=== PATIENT | female | born 1945 | race Caucasian/White ===

== ENCOUNTER 2021-12-11 17:16 | Inpatient (IN) | payer MEDICARE, MEDICAID, SELFPAY ==
[2021-12-11] VITALS (13 sets, daily range): BP systolic 107–142; BP diastolic 58–86; PULSE 79–113; RESP 11–20; TEMP 36.6–36.7; O2SAT 96–100; BMI 36.9
--- NOTE | ~2021-12-11 | XR_ITS ---
EXAMINATION: XR chest 2V 12/11/2021 18:18 INDICATION: Chest pain PROCEDURE: 2 view chest COMPARISON: No prior studies for comparison. FINDINGS: The lungs are clear. The cardiomediastinal silhouette is within normal limits. There are no pleural effusions. There is no pneumothorax suspected. IMPRESSION: 1: NO ACUTE CARDIOPULMONARY DISEASE. Reviewed, dictated and finalized at location A.
--- NOTE | ~2021-12-11 | NM_ITS ---
EXAMINATION: NM pulmonary perfusion DATE: 12/14/2021 14:25 INDICATION: Chest pain TECHNIQUE: 5.2 mCi Tc-99m MAA by intravenous route. Scintigraphic images of the chest were obtained. COMPARISON: Chest radiograph dated 12/11/2021 FINDINGS: Moderate sized unmatched relatively linear perfusion defect at the posterior segment of the left uppe r lobe seen only on the LPO projection. Additional small unmatched perfusion defect at the lateral ba silar segment of the right lower lobe. There is otherwise relatively homogeneous perfusion throughout the lungs. IMPRESSION: 1. Nondiagnostic (low or intermediate probability) for pulmonary embolism. Reviewed, dictated and finalized at location A.
--- NOTE | ~2021-12-11 | XR_ITS ---
EXAMINATION: XR chest 2V 12/14/2021 14:16 INDICATION: Dyspnea. Chest pain. PROCEDURE: 2 view chest COMPARISON: 12/11/2021 FINDINGS: The lungs are clear. The cardiomediastinal silhouette is within normal limits. There are no pleural effusions. There is no pneumothorax suspected. There is elevation of the right diaphragm . IMPRESSION: 1: NO ACUTE CARDIOPULMONARY DISEASE. Reviewed, dictated and finalized at location A.
--- NOTE | 2021-12-11 17:27 | ECG_ITS ---
Measurements Intervals [place] Rate: 103 P: 25 TN: 185 QRS: -47 QRSD: 108 T: 65 QT: 337 QTc: 443 Interpretive Statements SINUS TACHYCARDIA WITH OCCASIONAL VENTRICULAR PREMATURE COMPLEXES MARKED LEFT AXIS DEVIATION [QRS AXIS < -30] LOW QRS VOLTAGE IN PRECORDIAL LEADS [QRS DEFLECTION < 1.0 mV IN CHEST LEADS] MODERATE VOLTAGE CRITERIA FOR LVH, CONSIDER NORMAL VARIANT [MEETS CRITERIA IN ONE OF: R(aVL), S(V1), R(V5), R(V5/V6)+S(V1)] POSSIBLE ANTERIOR MYOCARDIAL INFARCTION , PROBABLY OLD [30 ms Q WAVE IN V3/V4, OR R < 0.2 mV IN V4] ABNORMAL ECG NO PREVIOUS ECG AVAILABLE FOR COMPARISON Electronically Signed On 12-12-2021 11:14:04 CDT by Mushtaq Puente M.D.
[2021-12-11 18:03] LABS: Basophils Absolute Auto 0.1 K/mm3 (0.0-0.1); Basophils Percent Auto 1.5 % (0.2-1.2); Eosinophils Absolute Auto 0.2 K/mm3 (0-0.3); Hematocrit 41.1 % (37.0-47.0); Hemoglobin 13.8 g/dL (12.0-15.0); Immature Granulocyte Absolute 0.08 K/mm3 (0.00-0.031); Lymphocytes Absolute Auto 2.72 K/mm3 (0.9-3.2); Mean Corpuscular HGB Conc 33.6 g/dl (32-36); Mean Corpuscular Hemoglobin 31.9 pg (26-34); Mean Corpuscular Volume 94.9 fl (80-100); Mean Platelet Volume 10.2 fl (7.4-10.4); Monocytes Absolute Auto 0.5 K/mm3 (0.1-0.6); Monocytes Percent Auto 5.9 % (2.6-8.5); Neutrophils Absolute Auto 4.4 K/mm3 (1.3-6.7); Neutrophils Percent Auto 54.6 % (45.5-73.1); Platelet Count Result 232 k/mm3 (150-375); Red Blood Count 4.33 M/mm3 (4.2-5.4); Red Cell Distribution Width 14.4 % (11.5-14.5)
[2021-12-11] MEDS: ASPIRIN 81 MG CHEWABLE TABLET 324 MG PO (18:05)
--- NOTE | 2021-12-11 18:05 | PC.NURSE ---
Pt to xray
[2021-12-11 18:13] LABS: Prothrombin Time 12.8 Seconds (11.1-14.7)
[2021-12-11 18:14] LABS: Partial Thromboplastin Time 30.8 SECONDS (22.3-36.8)
[2021-12-11 18:16] LABS: Alanine Aminotransferase 17 U/L (4-35); Albumin Level 4.4 g/dL (3.5-5.1); Alkaline Phosphatase 97 U/L (38-126); Anion Gap 13 mmol/L (8-16); Aspartate Amino Transferase 42 U/L (14-36); Bilirubin,Total 0.9 mg/dL (0.2-1.3); Blood Urea Nitrogen 16 mg/dL (7-17); Calcium 9.6 mg/dL (8.4-10.2); Carbon Dioxide 21 mmol/L (22-30); Chloride 106 mmol/L (98-107); Estimated CRCL calculation 41 ml/min; Estimated Glomerular Filt Rate 43; Glucose 220 mg/dL (65-110); Lipase 63 U/L (23-300); Potassium 4.2 mmol/L (3.4-5.0); Sodium 140 mmol/L (137-145)
[2021-12-11 18:28] LABS: Troponin I < 0.012 ng/mL (0.000-0.034)
--- NOTE | 2021-12-11 19:26 | ED.CHESTPAIN ---
HPI - Chest Pain General Chief Complaint: Chest Pain Stated Complaint: dyspnea Time Seen by Provider: 12/11/21 19:06 Source: patient Limitations: no limitations History of Present Illness HPI narrative: Patient is a 76-year-old female complaining of chest pain, midsternal, 5 out of 10, pressure, accompanied by intermittent shortness of breath, nonradiating started this morning. Patient denies any abdominal pain, nausea, vomiting, diaphoresis, fever or chills. Related Data Home Medications Medication Instructions Recorded Confirmed atorvastatin 10 mg PO DAILY 12/11/21 12/11/21 carvedilol 3.125 mg PO BID 12/11/21 12/11/21 losartan 25 mg PO DAILY 12/11/21 12/11/21 metformin 1,000 mg PO DAILY 12/11/21 12/11/21 nifedipine 90 mg PO DAILY 12/11/21 12/11/21 trazodone 50 mg PO HS 12/11/21 12/11/21 Allergies Allergy/AdvReac Type Severity Reaction Status Date / Time Iodinated Contrast Media Allergy Unknown Verified 12/11/21 17:53 Penicillins Allergy Unknown Verified 12/11/21 17:52 Review of Systems Review of Systems: All systems reviewed & are unremarkable except as noted in HPI and below Constitutional: Constitutional: Denies body ache(s), Denies chills, Denies excessive sweating, Denies fatigue, Denies fever(s), Denies headache(s), Denies lethargy, Denies malaise, Denies weakness and Denies weight loss Eyes: Eyes: Denies blurry vision, Denies change in vision and Denies loss of vision ENT: Denies dizziness, Denies ear discharge, Denies headache(s), Denies lip swelling, Denies epistaxis, Denies nasal congestion, Denies neck pain, Denies throat swelling and Denies tongue swelling Cardiovascular: Cardiovascular: Denies diaphoresis, Denies rapid heart rate, Denies edema, Denies irregular heart rhythm, Denies lightheadedness, Denies palpitations, Denies dyspnea and Denies dyspnea on exertion Respiratory: Respiratory: Denies chest congestion, Denies cough, Denies hemoptysis, Denies dyspnea and Denies dyspnea on exertion Gastrointestinal: Gastrointestinal: Denies abdominal pain, Denies melena, Denies hematochezia, Denies diarrhea, Denies nausea, Denies vomiting and Denies hematemesis Musculoskeletal: Musculoskeletal: Denies abnormal gait, Denies deformity, Denies joint swelling, Denies limited range of motion, Denies neck pain and Denies numbness Neurologic: Denies Abnormal speech present, Denies abnormal gait, Denies confusion, Denies dizziness, Denies headache(s), Denies focal weakness, Denies loss of vision, Denies numbness, Denies Other visual disturbances, Denies Sensory deficit (Neuro) and Denies weakness Psychiatric: Psychiatric: Denies confusion, Denies depression, Denies auditory hallucinations, Denies homicidal ideation and Denies suicidal ideation Endocrine: Endocrine: Denies cold intolerance, Denies excessive sweating, Denies fatigue, Denies heat intolerance and Denies palpitations Hematologic/Lymphatic: Hematologic/Lymphatic: Denies easy bleeding and Denies easy bruising Allergic/Immunologic: Allergic/Immunologic: Denies lip swelling, Denies throat swelling and Denies tongue swelling PMFSH Comments Past medical history: Diabetes, hypertension, hyperlipidemia Family history: Positive for hypertension and diabetes Social history: Non-smoker no EtOH or drug use Exam Const: General: cooperative, healthy appearing, comfortable, no acute distress, well developed, alert and awake; No confusion Orientation/consciousness: oriented to person, oriented to place, oriented to time, patient oriented x3 and No confusion Limitations: no limitations HENMT: Head: normal to inspection, normocephalic and atraumatic Ears: hearing grossly normal bilaterally, TM normal on the right and TM normal on the left General nose exam: Normal external nose present, Normal nares present and No nasal discharge present Face and sinus: normal facial exam Mouth: Yes Normal oral and palatal mucosa present, Yes lip normal, Yes tongue normal and Yes orophary
[2021-12-11 21:07] LABS: Glucose Point of Care 143 mg/dl (65-105)
--- NOTE | 2021-12-11 21:30 | PM.IMHP ---
H&P: HPI History of Present Illness Date/Time: 12/11/21 21:30 Chief Complaint: Chest pain. Narrative: This is a 76-year-old female with past medical history significant for hypertension, dyslipidemia, type 2 diabetes mellitus controlled with oral agents. Patient presents to the emergency room due to chest pain, pain is localized to the retrosternal area, pain has remained steady throughout the day with some intermittent shortness of breath, no nausea, no vomiting, no dizziness, no syncope, no near syncope, no cough no sputum production, no fevers no rigors no chills, no leg swelling. Preliminary workup was significant for a creatinine of 1.2. Patient is been admitted for further evaluation, management and treatment. Review of Systems Review of Systems: Retrosternal chest pain. Constitutional: Constitutional: Denies chills, Denies fatigue, Denies fever(s), Denies malaise, Denies night sweats, Denies poor appetite and Denies weakness Eyes: Eyes: Denies change in vision ENT: Denies dysphagia, Denies vertigo, Denies dizziness, Denies nasal congestion, Denies nasal discharge, Denies nasal obstruction and Denies odynophagia Cardiovascular: Cardiovascular: Reports chest pain, Denies chest pain with activity, Denies palpitations, Denies dyspnea on exertion, Denies orthopnea and Denies paroxysmal nocturnal dyspnea Respiratory: Respiratory: Denies cough, Denies excessive phlegm production, Denies dyspnea and Denies wheezing Gastrointestinal: Gastrointestinal: Denies abdominal pain, Denies dyspepsia, Denies heartburn, Denies diarrhea, Denies nausea and Denies vomiting Genitourinary: Genitourinary: Denies dysuria Musculoskeletal: Musculoskeletal: Denies back pain, Denies arthralgias, Denies joint swelling and Denies neck pain Integumentary/Breasts: Skin/Breast: Denies rash Neurologic: Denies focal weakness and Denies Sensory deficit (Neuro) Psychiatric: Psychiatric: Reports no additional psychiatric complaints and Reports as per HPI Endocrine: Endocrine: Denies cold intolerance, Denies heat intolerance, Denies polyphagia, Denies polydipsia, Denies polyuria and Denies palpitations Hematologic/Lymphatic: Hematologic/Lymphatic: Reports no additional hematologic/lymphatic complaints and Reports as per HPI Allergic/Immunologic: Allergic/Immunologic: Reports no additional allergic/immunologic complaints and Reports as per HPI [facility] Family History Family History (Updated 12/11/21 @ 23:35 by Corrine Kennedy RN) Mother Heart disease Social History Social History Smoking status: Never smoker Alcohol intake: never Substance use: never Substance use type: does not use Spiritual care concerns: No Meds Home Medications and Allergies Home Medications Medication Instructions Recorded Confirmed Type atorvastatin 10 mg PO DAILY 12/11/21 12/11/21 History carvedilol 3.125 mg PO BID 12/11/21 12/11/21 History losartan 25 mg PO DAILY 12/11/21 12/11/21 History metformin 1,000 mg PO DAILY 12/11/21 12/11/21 History nifedipine 90 mg PO DAILY 12/11/21 12/11/21 History trazodone 50 mg PO HS 12/11/21 12/11/21 History Allergies Allergy/AdvReac Type Severity Reaction Status Date / Time Iodinated Contrast Media Allergy Unknown Verified 12/11/21 17:53 Penicillins Allergy Unknown Verified 12/11/21 17:52 Vital Signs Vital Signs - 24 hr 12/11/21 17:18 12/11/21 17:50 12/11/21 17:51 Temperature 98.1 F Pulse Rate 113 H 97 Respiratory Rate 18 Blood Pressure 107/58 L Pulse Oximetry 100 12/11/21 19:01 12/11/21 19:32 12/11/21 19:46 Temperature Pulse Rate 83 86 81 Respiratory Rate 13 16 12 Blood Pressure 125/79 130/71 120/69 Pulse Oximetry 100 97 97 12/11/21 20:01 12/11/21 20:31 12/11/21 21:01 Temperature Pulse Rate 86 81 84 Respiratory Rate 12 11 L 15 Blood Pressure 116/79 127/72 116/67 Pulse Oximetry 97 97 98 Exam Narrative: Patient is laying in a stretcher Const: General: cooperative,
[2021-12-11 21:47] LABS: Troponin I < 0.012 ng/mL (0.000-0.034)
--- NOTE | 2021-12-11 23:34 | ADMGEN ---
This patient, Gardenia Jacob, was admitted to IMU Room 213-01 @2320. Patient/family oriented to hospital policies and general routines including ID bracelet, bed and alarms, visiting hours, pain management, procedures, bathroom and other care routines, personal items, smoking policy, room service/diet, and visiting hours. Information on how to activate the Rapid Response Team has been discussed. Patient/Family are encouraged to report perceived risks to care and to ask questions if they do not understand what they are told or what they should do.
[2021-12-12] VITALS (18 sets, daily range): BP systolic 106–135; BP diastolic 46–76; PULSE 80–94; RESP 16–22; TEMP 35.9–36.8; O2SAT 94–100
--- NOTE | 2021-12-12 | ECHO_ITS ---
Patient Info Name: Gardenia Jacob Age: 76 years : 1945 Gender: Female Ht: 66 in Wt: 229 lbs BSA: 2.24 m2 HR: 89 bpm BP: 113 / 61 mmHg Heart Rhythm: Sinus Rhythm Technical Quality: Fair Exam Date: 12/12/2021 7:28 AM Exam Location: [facility] Patient Status: Outpatient Admit Date: 12/11/2021 Staff Ordering Physician: Roderick Mosqueda MD Pipe Coremaker: Alexandra Sanchez RDCS Attending Provider: Roderick Mosqueda MD Referring Physician: Jaylin SHEFFIELD; Exam Type: CA echo doppler color flow Study Info Indications - CP Complete two-dimensional, color flow and Doppler transthoracic echocardiogram is performed. Summary 1. Complete two-dimensional, color flow and Doppler transthoracic echocardiogram is performed. 2. Left ventricular chamber dimension is normal. 3. Left ventricular systolic function is normal, estimated at 65-70%. 4. There is moderately increased left ventricular wall thickness. 5. The left ventricular diastolic function is grade I diastolic dysfunction. 6. Left atrial chamber dimension is moderately enlarged. 7. There is mild mitral valve regurgitation. 8. There is mild tricuspid valve regurgitation. 9. There is mild pulmonic regurgitation. Left Ventricle Left ventricular chamber dimension is normal. Left ventricular systolic function is normal, estimated at 65-70%. There is moderately increased left ventricular wall thickness. The left ventricular diastolic function is grade I diastolic dysfunction. Right Ventricle Right ventricular chamber dimension is normal. Right ventricular systolic function is normal. Left Atria Left atrial chamber dimension is moderately enlarged. Right Atria Right atrial chamber dimension is normal. Atrial Septum Intact interatrial septum visualized by color flow imaging. Aortic Valve The aortic valve is trileaflet. There is no aortic valve sclerosis. There is no aortic valve stenosis. There is trace aortic valve regurgitation. Pulmonic Valve The pulmonic valve is normal. There is no pulmonic valve stenosis. There is mild pulmonic regurgitation. Mitral Valve The mitral valve has calcified annulus. There is no mitral valve stenosis. There is mild mitral valve regurgitation. Tricuspid Valve The tricuspid valve leaflets are normal. There is no significant tricuspid valve stenosis. There is mild tricuspid valve regurgitation. No pulmonary hypertension, estimated pulmonary arterial systolic pressure is 31 mmHg. Pericardium/Pleural The pericardium appears epicardial fat pad. There is trivial pericardial effusion. Inferior Vena Cava Normal inferior vena cava with >50% collapse upon inspiration consistent with normal right atrial pressure, 10 mmHg. Aorta The aortic root size at the sinus of Valsalva is normal. Left Ventricular Outflow Tract Name Value Normal LVOT 2D LVOT Diameter 2.1 cm LVOT Doppler LVOT Peak Gradient 4 mmHg LVOT Mean Gradient 2 mmHg LVOT VTI 19 cm LVOT VTI/AV VTI Ratio
[2021-12-12 00:25] LABS: Troponin I < 0.012 ng/mL (0.000-0.034)
[2021-12-12 00:27] LABS: Glucose Point of Care 153 mg/dl (65-105)
[2021-12-12 08:20] LABS: Glucose Point of Care 148 mg/dl (65-105)
[2021-12-12] MEDS: ENOXAPARIN 40 MG/0.4 ML SYRINGE SUB-Q (09:31)
[2021-12-12] MEDS: ATORVASTATIN 10 MG TABLET PO (09:32)
[2021-12-12] MEDS: NIFEdipine 30 MG TAB.ER.24 90 MG PO (09:32)
[2021-12-12] MEDS: carvediloL 3.125 MG TABLET PO ×2 (09:32→19:00)
--- NOTE | 2021-12-12 10:28 | PM.CNCAR ---
Assessment and Plan Assessment and plan (1) Chest pain: Qualifiers: Chest pain type: unspecified Qualified Code(s): R07.9 - Chest pain, unspecified Code(s): R07.9 - Chest pain, unspecified Status: Acute Assessment and Plan: troponins are negative but chest pain is somewhat concerning for angina. It did seem to improve with nitroglycerin. She has several risk factors coronary disease as well as a known history of a moderate stenosis in unknown artery dating back 10 years. I did talk about the risks benefits and alternatives of stress testing versus coronary angiogram. At this point, will premedicate her because of her IV dye allergy with prednisone and plan on coronary angiogram either later on this afternoon or tomorrow. Continue carvedilol, losartan. Will increase her atorvastatin to 20 mg p.o. daily. willRequest records from [place] from most recent coronary angiogram. 2D echocardiogram Doppler will be ordered and reviewed. (2) ELVIN (acute kidney injury): Code(s): N17.9 - Acute kidney failure, unspecified Status: Acute Assessment and Plan: Will start normal saline 100 cc/hour. (3) Hypertension associated with diabetes: Code(s): E11.59 - Type 2 diabetes mellitus with other circulatory complications; I15.2 - Hypertension secondary to endocrine disorders Status: Acute Assessment and Plan: Controlled. Continue current meds (4) Hyperlipidemia associated with type 2 diabetes mellitus: Code(s): E11.69 - Type 2 diabetes mellitus with other specified complication; E78.5 - Hyperlipidemia, unspecified Status: Acute Assessment and Plan: will increase statin as detailed above (5) Allergy to IVP dye: Code(s): T50.995A - Adverse effect of other drugs, medicaments and biological substances, initial encounter Status: Acute Assessment and Plan: premedicate with prednisone 50 mg p.o. x1 tonight and tomorrow History of Present Illness History of Present Illness Consult date/time: 12/12/21 10:28 Requesting physician: Darlene Dodge MD Consult reason: chest pain Reason For Visit: chest pain Narrative: Date of service 12/12/2021 Reason consultation: Chest pain Requesting provider: Dr. Dodge History: Patient is a 76-year-old female who states that she was catheterization several years ago and was told that she had a 50% blockage. Details of this catheterization are not known at this point. She came to the hospital because of chest pain. She has several risk factors coronary disease also includes hypertension, hyperlipidemia and diabetes. She states that she developed chest pain yesterday morning. She describes as a pressure and a left anterior chest and radiated i into her back left shoulder blade area. It would come and go. Usually last for about 15-20 minutes at a time. She was short of breath with the. She was not nauseated. She does have some lower extremity swelling which is not new or different. She has some occasional palpitations which are also not new that she has had for several years. She denies any syncope, presyncope, paroxysmal nocturnal dyspnea, orthopnea, unusual shortness of breath. She is not very active. She states she came to the hospital and was given aspirin as well as nitroglycerin. She states that these did seem to help. EKG does not show any acute ST or T-wave abnormalities and her troponins are negative to this point. Review of Systems Review of Systems: All systems reviewed & are unremarkable except as noted in HPI and below Constitutional: Constitutional: Denies weakness Eyes: Eyes: Denies blurry vision ENT: Reports Normal hearing present Cardiovascular: Cardiovascular: Reports chest pain Respiratory: Respiratory: Reports dyspnea Gastrointestinal: Gastrointestinal: Denies abdominal pain Genitourinary: Genitourinary: Denies flank pain Musculoskeletal: Musculoskeletal: D
[2021-12-12] MEDS: SODIUM CHLORIDE 0.9% IV 1,000 ML 100 ML IV CONT ×2 (11:52→20:21)
[2021-12-12 12:32] LABS: Glucose Point of Care 148 mg/dl (65-105)
[2021-12-12] MEDS: LOSARTAN POTASSIUM 25 MG TABLET PO (12:33)
--- NOTE | 2021-12-12 15:29 | PC.NURSE ---
[facility] flyer was given to patient.
[2021-12-12 17:06] LABS: Glucose Point of Care 149 mg/dl (65-105)
--- NOTE | 2021-12-12 17:11 | PM.IMPN ---
Progress Note: A&P Assessment and Plan (1) Hypertension associated with diabetes: Code(s): E11.59 - Type 2 diabetes mellitus with other circulatory complications; I15.2 - Hypertension secondary to endocrine disorders Status: Acute Assessment and Plan: long standing HTN bp is controlled today (2) Hyperlipidemia: Code(s): E78.5 - Hyperlipidemia, unspecified Status: Chronic Assessment and Plan: chronic and stable (3) Type 2 diabetes mellitus: Code(s): E11.9 - Type 2 diabetes mellitus without complications Status: Acute Assessment and Plan: accuchecks, ssi sugars are 220 today (4) ELVIN (acute kidney injury): Code(s): N17.9 - Acute kidney failure, unspecified Status: Acute Assessment and Plan: creat is 1.2 continue to hydrate monitor bmp (5) Chest pain: Qualifiers: Chest pain type: unspecified Qualified Code(s): R07.9 - Chest pain, unspecified Code(s): R07.9 - Chest pain, unspecified Status: Acute Assessment and Plan: Pt having ongoing chest pains troponin are negative but chest pain appears to be angina like and pt benefits from a heart cath Echo reviewed and EKG reviewed shows LVH pt has some allergy to dye pt to have steroid premed today Subjective Date/time seen: 12/12/21 17:11 Interval history: 76-year-old female with past medical history significant for hypertension, dyslipidemia, type 2 diabetes mellitus controlled with oral agents. Patient presents to the emergency room due to chest pain, pain is localized to the retrosternal area, pain has remained steady throughout the day with some intermittent shortness of breath. Pt having ongoing chest pains, seen by cardiology, pt will go to heart cath billy am. continue to monitor in IMU Review of Systems Review of Systems: All systems reviewed & are unremarkable except as noted in HPI and below Exam Const: General: in distress and tired appearing Nutritional Appearance: overweight Orientation/consciousness: oriented to person HENMT: Head: normal to inspection Resp: Effort & Inspection: no respiratory distress Auscultation: no rhonchi and no wheezes Cardio: Rate: regular rate Rhythm: regular rhythm GI: Inspection: normal to inspection GI Palp: No abdominal tenderness, No Guarding due to palpation present (GI) and No Hepatomegaly present Auscultation: normal bowel sounds Neuro: General: oriented to person Objective Data Vital Signs Vital Signs: Vital Signs - 24 hr 12/11/21 17:18 12/11/21 17:50 12/11/21 17:51 Temperature 36.7 C Pulse Rate 113 H 97 Respiratory Rate 18 Blood Pressure 107/58 L Pulse Oximetry 100 12/11/21 19:01 12/11/21 19:32 12/11/21 19:46 Temperature Pulse Rate 83 86 81 Respiratory Rate 13 16 12 Blood Pressure 125/79 130/71 120/69 Pulse Oximetry 100 97 97 12/11/21 20:01 12/11/21 20:31 12/11/21 21:01 Temperature Pulse Rate 86 81 84 Respiratory Rate 12 11 L 15 Blood Pressure 116/79 127/72 116/67 Pulse Oximetry 97 97 98 12/11/21 21:31 12/11/21 22:01 12/11/21 23:01 Temperature Pulse Rate 79 81 89 Respiratory Rate 14 17 13 Blood Pressure 122/58 L 124/60 115/63 Pulse Oximetry 96 100 96 12/11/21 23:29 12/12/21 00:00 12/12/21 02:00 Temperature 36.6 C 35.9 C L Pulse Rate 89 84 94 Respiratory Rate 20 22 H Blood Pressure 142/86 H 126/52 L Pulse Oximetry 100 94 12/12/21 04:00 12/12/21 06:00 12/12/21 08:00 Temperature 36.7 C 36.6 C Pulse Rate 89 82 81 Respiratory Rate 18 16 Blood Pressure 113/61 106/46 L Pulse Oximetry 97 96 12/12/21 09:32 12/12/21 09:36 12/12/21 10:00 Temperature Pulse Rate 84 85 Respiratory Rate Blood Pressure 135/61 Pulse Oximetry 12/12/21 12:00 12/12/21 14:00 12/12/21 16:00 Temperature 36.6 C 36.6 C Pulse Rate 84 86 86 Respiratory Rate 16 18 Blood Pressure 124/61 112/47 L Pulse Oximetry 95 96 Intake/Output Intake/Ou
[2021-12-12] MEDS: predniSONE 40 MG, predniSONE 10 MG 50 MG PO ×2 (18:59→23:03)
[2021-12-12 20:14] LABS: Glucose Point of Care 211 mg/dl (65-105)
[2021-12-12] MEDS: traZODone HCL 50 MG TABLET PO (20:22)
[2021-12-12] MEDS: CYCLOBENZAPRINE HCL 5 MG TABLET PO (23:02)
[2021-12-13] VITALS (28 sets, daily range): BP systolic 124–186; BP diastolic 56–116; PULSE 85–102; RESP 13–22; TEMP 36.2–36.9; O2SAT 90–100
[2021-12-13] MEDS: predniSONE 40 MG, predniSONE 10 MG 50 MG PO (06:14)
[2021-12-13] MEDS: SODIUM CHLORIDE 0.9% IV 1,000 ML 100 ML IV CONT (06:16)
--- NOTE | 2021-12-13 07:37 | WPDMODSED ---
Moderate Sedation Note-Pt Data Patient Data Diagnosis: Chest pain of unclear etiology Left anterior hemiblock History of Mild CAD details unknown Present Complaint: None this AM Procedure to be performed/Plan: Left heart cath Allergies Allergy/AdvReac Type Severity Reaction Status Date / Time Iodinated Contrast Media Allergy Unknown Hives Verified 12/12/21 09:39 Penicillins Allergy Unknown Hives Verified 12/12/21 09:39 Home Medications Medication Instructions Recorded Confirmed Type atorvastatin 10 mg PO DAILY 12/11/21 12/11/21 History carvedilol 3.125 mg PO BID 12/11/21 12/11/21 History losartan 25 mg PO DAILY 12/11/21 12/11/21 History metformin 1,000 mg PO DAILY 12/11/21 12/11/21 History nifedipine 90 mg PO DAILY 12/11/21 12/11/21 History trazodone 50 mg PO HS 12/11/21 12/11/21 History Current Medications: Active Medications Atorvastatin Calcium (Atorvastatin 20 Mg Tablet) 20 mg PO QAM [facility] Carvedilol (Carvedilol 3.125 Mg Tablet) 3.125 mg PO BIDWM [facility] Last Admin: 12/12/21 19:00 Dose: 3.125 mg Documented by: Cyclobenzaprine HCl (Cyclobenzaprine Hcl 5 Mg Tablet) 5 mg PO Q8H PRN PRN Reason: Muscle Spasm Last Admin: 12/12/21 23:02 Dose: 5 mg Documented by: Dextrose (Dextrose 50% 25 Gm/50 Ml Syringe) 12.5 gm IV PUSH PRN PRN; Protocol PRN Reason: Hypoglycemia Diphenhydramine HCl (Diphenhydramine Hcl Inj 50 Mg/Ml Vial) 50 mg IV PUSH ONCE PRN PRN Reason: Allergic Symptoms Stop: 12/13/21 23:59 Enoxaparin Sodium (Enoxaparin 40 Mg/0.4 Ml Syringe) 40 mg SUB-Q DAILY [facility] Last Admin: 12/12/21 09:31 Dose: 40 mg Documented by: Glucagon (Glucagon For Inj 1 Mg Vial) 1 mg IM PRN PRN; Protocol PRN Reason: Hypoglycemia Glucose (Glucose Oral Gel 15 Gm Of Glucse In 37.5 Gm Tube) 15 gm PO PRN PRN; Protocol PRN Reason: Hypoglycemia Sodium Chloride (Normal Saline Iv) 1,000 mls @ 100 mls/hr IV CONT .Q10H [facility] Last Admin: 12/13/21 06:16 Dose: 100 mls/hr Documented by: Dextrose (Dextrose 5% 1,000 Ml) 1,000 mls @ 100 mls/hr IVPB PRN PRN; Protocol PRN Reason: Hypoglycemia Insulin Aspart (Insulin Aspart (*Bkc) 100 Units/Ml) 2 - 5 units SUB-Q TIDWM NILSA; Protocol Losartan Potassium (Losartan Potassium 25 Mg Tablet) 25 mg PO DAILY [facility] Last Admin: 12/12/21 12:33 Dose: 25 mg Documented by: Nifedipine (Nifedipine 30 Mg Tab.Er.24) 90 mg PO DAILY [facility] Last Admin: 12/12/21 09:32 Dose: 90 mg Documented by: Perflutren Lipid Microsphere (Perflutren Lipid Microspheres 1.5 Ml Vial Diluted To 10 Ml Total Volume) 0 ml IV PUSH ONCE PRN; Protocol PRN Reason: adequate visualization Trazodone HCl (Trazodone Hcl 50 Mg Tablet) 50 mg PO HS [facility] Last Admin: 12/12/21 20:22 Dose: 50 mg Documented by: Sedation/Anesthesia: No previous sedation/anesthesia problems (including family history). [facility] Past Medical History Medical History Hyperlipidemia Hypertension Type 2 diabetes mellitus Family History Family History Mother Heart disease Congestive heart failure Social History Social History Smoking status: Never smoker Alcohol intake: never Substance use: never Substance use type: does not use Spiritual care concerns: No Mod Sed Physical Exam Physical Exam Pre Procedural Exam: Normal: Neck, Throat, Airway, Lungs, Heart Size, Heart Rate, Heart Rhythm and Extremities and Variation: Appearance (Obese female in NAD ) Hours since solid foods: 12 Hours since liquid intake: 12 Mallampati Classification: class II Internal Medicine - PN: Obj Da Vital Signs Vital Signs: Vital Signs - 24 hr 12/12/21 08:00 12/12/21 09:32 12/12/21 09:36 Temperature 36.6 C Pulse Rate 81 84 Respiratory Rate 16 Blood Pressure 106/46 L 135/61 Pulse Oximetry 96 12/12/21 10:00 12/12/21 12:00 12/12/21 14:00 Temperature 36.6 C Pulse Rate 85 84 86
[2021-12-13 08:01] LABS: Anion Gap 7 mmol/L (8-16); Blood Urea Nitrogen 16 mg/dL (7-17); Calcium 8.7 mg/dL (8.4-10.2); Carbon Dioxide 23 mmol/L (22-30); Chloride 109 mmol/L (98-107); Estimated CRCL calculation 50 ml/min; Estimated Glomerular Filt Rate 54; Glucose 301 mg/dL (65-110); Potassium 4.3 mmol/L (3.4-5.0); Sodium 139 mmol/L (137-145)
[2021-12-13] MEDS: LOSARTAN POTASSIUM 25 MG TABLET PO (08:21)
[2021-12-13] MEDS: NIFEdipine 30 MG TAB.ER.24 90 MG PO (08:21)
[2021-12-13] MEDS: ATORVASTATIN 20 MG TABLET PO (08:21)
[2021-12-13] MEDS: carvediloL 3.125 MG TABLET PO ×2 (08:21→17:24)
[2021-12-13 08:26] LABS: Glucose Point of Care 279 mg/dl (65-105)
--- NOTE | 2021-12-13 09:14 | WPDCARDPROC ---
Cardiac Cath Procedure Note Date of procedure:: 12/13/21 Performing physician:: Bassem Whittington MD Indication:: Atypical chest pain Brief clinical history:: this is a 76-year-old woman who reports a history of previous coronary angiogram demonstrating mild CAD. She entered the hospital with chest pain that is largely atypical of angina. Troponin levels and ECGs do not show any evidence of acute coronary syndrome. Procedure Procedure performed:: Left ventriculogram coronary angiogram Sedation/Medication given:: fentanyl 50 mg Versed 2 mg case start time 8:50 a.m. case end time 9:03 a.m. Access site:: right femoral artery Estimated blood loss:: less than 20 cc Procedure note:: patient was brought to the cardiac catheterization lab in the postabsorptive state where the right femoral triangle was prepared and draped in the usual fashion. Anesthesia was provided with 1% lidocaine given locally. Using the modified Seldinger technique the femoral artery was punctured and a 5 [place] vascular sheath was placed. After this left heart catheterization was carried out. I used a 5 [place] angled pigtail catheter to measure left-sided hemodynamics and to inject LV g in the CAMPBELL projection. Following this standard 5 [place] FL4 catheter was used to engage and inject the left coronary artery. A 5 [place] JR4 catheter was used to engage and inject the right coronary artery. The cineangiograms were then reviewed and the case was terminated. A angiogram was performed to the femoral artery through the sheath after which the decision was made to remove the sheath with direct manual compression. She was taken to the holding area for sheath removal and recovery. There was no sign of any groin hematoma upon leaving the cathode builder. Findings:: Hemodynamics: Central aortic pressure is 154 over 82 left ventricle 154/0 end-diastolic pressure 16 there is no gradient on pullback across the aortic valve. Left ventricle: The LV is normal in size. All segments contract vigorously the global ejection fraction I would it infrastructure consultant to be 70%. No regional wall motion abnormalities were seen. The left main coronary artery is nicely patent the left anterior descending is a medium caliber artery extending down to and around the apex. The midportion of the LAD has mild atherosclerotic stenosis of about 50%. This is a smooth tapering lesion that does not appear to be flow-limiting in any projection. The circumflex is a medium caliber vessel giving rise to the marginal branches. The circumflex system is smooth and angiographically free of abnormalities. The right coronary artery is medium in caliber and dominant to the posterior circulation. The RCA is smooth and free of angiographic abnormalities. Conclusion:: 1. Right coronary dominant circulation with angiographically modest coronary disease. About 50% stenosis in the mid LAD is noted as described above. No flow-limiting lesions were identified. 2. Vigorous left ventricular systolic function Bassem Whittington MD [facility]
[2021-12-13 12:08] LABS: Glucose Point of Care 297 mg/dl (65-105)
[2021-12-13] MEDS: INSULIN ASPART (*BKC) 100 UNITS/ML SUB-Q ×3 (12:18→17:22)
[2021-12-13] MEDS: SODIUM CHLORIDE 0.9% IV 1,000 ML 125 ML IV CONT (14:38)
--- NOTE | 2021-12-13 14:59 | PM.IMPN ---
Progress Note: A&P Assessment and Plan (1) Hypertension associated with diabetes: Code(s): E11.59 - Type 2 diabetes mellitus with other circulatory complications; I15.2 - Hypertension secondary to endocrine disorders Status: Acute Assessment and Plan: Long standing HTN (2) Hyperlipidemia: Code(s): E78.5 - Hyperlipidemia, unspecified Status: Chronic Assessment and Plan: Chronic and stable (3) Type 2 diabetes mellitus: Code(s): E11.9 - Type 2 diabetes mellitus without complications Status: Acute Assessment and Plan: Accuchecks, ssi sugars are 300 today (4) ELVIN (acute kidney injury): Code(s): N17.9 - Acute kidney failure, unspecified Status: Acute Assessment and Plan: Creat is 1.0 continue to hydrate monitor bmp (5) Chest pain: Qualifiers: Chest pain type: unspecified Qualified Code(s): R07.9 - Chest pain, unspecified Code(s): R07.9 - Chest pain, unspecified Status: Acute Assessment and Plan: Pt having ongoing chest pains troponin are negative but chest pain appears to be angina like and pt benefits from a heart cath Echo reviewed and EKG reviewed shows LVH pt has some allergy to dye pt to have steroid premed today heart cath was negative continue ASA chest pains are non cardiac in nature Subjective Date/time seen: 12/13/21 14:59 Interval history: 76-year-old female with past medical history significant for hypertension, dyslipidemia, type 2 diabetes mellitus controlled with oral agents. Patient presents to the emergency room due to chest pain, pain is localized to the retrosternal area, pain has remained steady throughout the day with some intermittent shortness of breath. Pt having ongoing chest pains, seen by cardiology, pt had heart cath which was negative, chest pain non cardiac in nature possibly, GERD related. Review of Systems Review of Systems: All systems reviewed & are unremarkable except as noted in HPI and below Exam Const: General: in distress and tired appearing Nutritional Appearance: overweight Orientation/consciousness: oriented to person HENMT: Head: normal to inspection Resp: Effort & Inspection: no respiratory distress Auscultation: no rhonchi and no wheezes Cardio: Rate: regular rate Rhythm: regular rhythm GI: Inspection: normal to inspection Auscultation: normal bowel sounds Neuro: General: oriented to person Objective Data Vital Signs Vital Signs: Vital Signs - 24 hr 12/12/21 16:00 12/12/21 17:59 12/12/21 19:00 Temperature 36.6 C Pulse Rate 86 86 82 Respiratory Rate 18 Blood Pressure 112/47 L Pulse Oximetry 96 12/12/21 19:26 12/12/21 19:43 12/12/21 20:00 Temperature 36.4 C Pulse Rate 86 81 80 Respiratory Rate 20 Blood Pressure 120/76 Pulse Oximetry 97 96 97 12/12/21 22:00 12/12/21 23:05 12/13/21 00:00 Temperature 36.8 C Pulse Rate 87 87 87 Respiratory Rate 18 Blood Pressure 130/62 Pulse Oximetry 97 97 12/13/21 02:00 12/13/21 04:00 12/13/21 06:00 Temperature 36.4 C Pulse Rate 86 92 85 Respiratory Rate 20 Blood Pressure 142/73 H Pulse Oximetry 97 12/13/21 07:57 12/13/21 08:00 12/13/21 08:21 Temperature 36.2 C L Pulse Rate 97 90 91 Respiratory Rate 18 Blood Pressure 124/68 Pulse Oximetry 94 12/13/21 09:30 12/13/21 09:35 12/13/21 09:40 Temperature Pulse Rate 93 92 91 Respiratory Rate 17 19 17 Blood Pressure 145/83 H 150/91 H 155/94 H Pulse Oximetry 99 97 97 12/13/21 09:45 12/13/21 09:50 12/13/21 09:55 Temperature Pulse Rate 91 92 94 Respiratory Rate 22 H 15 14 Blood Pressure 158/94 H 179/115 H 186/116 H Pulse Oximetry 96 97 98 12/13/21 09:58 12/13/21 10:15 12/13/21 10:30 Temperature Pulse Rate 91 90 89 Respiratory Rate 15 13 14 Blood Pressure 154/88 H 139/73 137/103 H Pulse Oximetry 98 98 98 12/13/21 10:45 12/13/21 11:00 12/13/21 11:30 Temperature
[2021-12-13 17:02] LABS: Glucose Point of Care 341 mg/dl (65-105)
[2021-12-13 20:21] LABS: Glucose Point of Care 299 mg/dl (65-105)
[2021-12-13] MEDS: traZODone HCL 50 MG TABLET PO (22:23)
[2021-12-14] VITALS: PULSE 85
[2021-12-14] MEDS: SODIUM CHLORIDE 0.9% IV 1,000 ML 100 ML IV CONT (00:42)
[2021-12-14 04:00] VITALS: BP 132/65; PULSE 76; PULSE 79; RESP 20; TEMP 36.6; O2SAT 97
[2021-12-14 08:00] VITALS: BP 161/95; PULSE 74; PULSE 85; RESP 18; TEMP 36.8; O2SAT 94
[2021-12-14] MEDS: PANTOPRAZOLE SOD SESQUIHYDRATE 20 MG TAB PO (08:35)
[2021-12-14] MEDS: ASPIRIN 81 MG CHEWABLE TABLET PO (08:35)
[2021-12-14] MEDS: INSULIN ASPART (*BKC) 100 UNITS/ML SUB-Q ×2 (08:39→12:33)
[2021-12-14 08:58] VITALS: PULSE 77
[2021-12-14] MEDS: carvediloL 3.125 MG TABLET PO (08:58)
[2021-12-14] MEDS: NIFEdipine 30 MG TAB.ER.24 90 MG PO (08:58)
[2021-12-14] MEDS: ATORVASTATIN 20 MG TABLET PO (08:58)
[2021-12-14] MEDS: METOPROLOL SUCCINATE EXT REL 12.5 MG TABCR PO (08:58)
[2021-12-14] MEDS: LOSARTAN POTASSIUM 25 MG TABLET PO (08:58)
[2021-12-14] MEDS: ENOXAPARIN 40 MG/0.4 ML SYRINGE SUB-Q (09:00)
--- NOTE | 2021-12-14 10:30 | PM.PNCARD ---
Progress Note: A&P Assessment and Plan (1) Chest pain: Qualifiers: Chest pain type: unspecified Qualified Code(s): R07.9 - Chest pain, unspecified Code(s): R07.9 - Chest pain, unspecified Status: Acute Assessment and Plan: Chest pain is not coronary in etiology. Discussed with Dr. Wilson about pursuing other workup as need be. Consideration of GERD versus PE versus other. Will defer to hospitalist Service (2) ELVIN (acute kidney injury): Code(s): N17.9 - Acute kidney failure, unspecified Status: Acute Assessment and Plan: Will DC IV fluid (3) Hypertension associated with diabetes: Code(s): E11.59 - Type 2 diabetes mellitus with other circulatory complications; I15.2 - Hypertension secondary to endocrine disorders Status: Acute Assessment and Plan: Controlled. Will increase her carvedilol to 6.25 mg p.o. b.i.d. (4) Hyperlipidemia associated with type 2 diabetes mellitus: Code(s): E11.69 - Type 2 diabetes mellitus with other specified complication; E78.5 - Hyperlipidemia, unspecified Status: Acute Assessment and Plan: On statin (5) Allergy to IVP dye: Code(s): T50.995A - Adverse effect of other drugs, medicaments and biological substances, initial encounter Status: Acute Assessment and Plan: No reaction (6) CAD (coronary artery disease): Code(s): I25.10 - Atherosclerotic heart disease of [place] coronary artery without angina pectoris Status: Acute Assessment and Plan: She does wish to follow up with Cardiology but lives closer to [place] and 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 Encouraged her to see Dr. Alvarez. Continue aspirin, carvedilol, losartan, statin Subjective Date/time seen: 12/14/21 10:30 Interval history: 76-year-old female with past medical history significant for hypertension, dyslipidemia, type 2 diabetes mellitus controlled with oral agents. Patient presents to the emergency room due to chest pain, Date of service 12/14/2021: No longer has any chest pain. Cardiac catheterization showed moderate LAD disease but not significant. No shortness of breath or groin pain Review of Systems Review of Systems: All systems reviewed & are unremarkable except as noted in HPI and below Constitutional: Constitutional: Denies excessive sweating, Denies headache(s) and Denies weakness Eyes: Eyes: Denies blurry vision ENT: Reports Normal hearing present, Denies headache(s) and Denies neck pain Cardiovascular: Cardiovascular: Reports chest pain and Reports dyspnea Respiratory: Respiratory: Reports dyspnea Gastrointestinal: Gastrointestinal: Denies abdominal pain Genitourinary: Genitourinary: Denies flank pain Musculoskeletal: Musculoskeletal: Denies neck pain Integumentary/Breasts: Skin/Breast: Denies dry skin Neurologic: Reports Normal hearing present, Denies confusion, Denies headache(s) and Denies weakness Psychiatric: Psychiatric: Denies anxiety and Denies confusion Endocrine: Endocrine: Denies excessive sweating Hematologic/Lymphatic: Hematologic/Lymphatic: Denies easy bleeding Allergic/Immunologic: Allergic/Immunologic: Denies GI upset with certain foods Exam Narrative: patient awake alert. Appears stated age Const: General: comfortable and no acute distress; No confusion Orientation/consciousness: No confusion HENMT: General nose exam: Normal nares present Eyes: Sclera: sclerae normal Neck: Neck: supple and no JVD Chest: Other: no reproducible chest wall pain to palpation Resp: Auscultation: clear to auscultation bilaterally Cardio: Rate: regular rate Rhythm: regular rhythm Other: Right groin is free of hematoma ecchymosis or bruit GI: Inspection: non-distended Auscultation: normal bowel sounds Skin: General skin exam: normal color Neuro: General: No confusion Cranial nerves: Yes Normal hearing present
[2021-12-14 12:00] VITALS: BP 123/55; PULSE 68; PULSE 72; RESP 18; TEMP 36.9; O2SAT 96
[2021-12-14 12:04] LABS: Glucose Point of Care 179 mg/dl (65-105)
[2021-12-14 12:04] LABS: Glucose Point of Care 137 mg/dl (65-105)
--- NOTE | 2021-12-14 14:18 | PM.DS ---
DS: Admitting Diagnosis Discharge Date 12/14/2021 Admitting Diagnosis Chest pain. DS: Discharge Diagnosis Discharge Diagnosis (1) Hypertension associated with diabetes: Code(s): E11.59 - Type 2 diabetes mellitus with other circulatory complications; I15.2 - Hypertension secondary to endocrine disorders Status: Acute Assessment and Plan: Long standing HTN (2) Hyperlipidemia: Code(s): E78.5 - Hyperlipidemia, unspecified Status: Chronic Assessment and Plan: Chronic and stable (3) Type 2 diabetes mellitus: Code(s): E11.9 - Type 2 diabetes mellitus without complications Status: Acute Assessment and Plan: Accuchecks, ssi sugars are 300 today (4) ELVIN (acute kidney injury): Code(s): N17.9 - Acute kidney failure, unspecified Status: Acute Assessment and Plan: Creat is 1.0 continue to hydrate monitor bmp (5) Chest pain: Qualifiers: Chest pain type: unspecified Qualified Code(s): R07.9 - Chest pain, unspecified Code(s): R07.9 - Chest pain, unspecified Status: Acute Assessment and Plan: Pt having ongoing chest pains troponin are negative but chest pain appears to be angina like and pt benefits from a heart cath Echo reviewed and EKG reviewed shows LVH pt has some allergy to dye pt to have steroid premed today heart cath was negative continue ASA chest pains are non cardiac in nature pt had VQ scan which was negative for PE prior to DC. Pt is stable for DC no chest pains mentions on DC. DS: Summary Hospital Course Hospital Course: Pt having ongoing chest pains troponin are negative but chest pain appears to be angina like and pt benefits from a heart cath Echo reviewed and EKG reviewed shows LVH pt has some allergy to dye pt to have steroid premed today heart cath was negative continue ASA chest pains are non cardiac in nature pt had VQ scan which was negative for PE prior to DC. Pt is stable for DC no chest pains mentions on DC. Time Spent with Patient Time attestation: Total time spent providing and/or coordinating discharge services:40 minutes on day of discharge Exam Const: General: in distress and tired appearing Nutritional Appearance: overweight Orientation/consciousness: oriented to person HENMT: Head: normal to inspection Resp: Effort & Inspection: no respiratory distress Auscultation: no rhonchi and no wheezes Cardio: Rate: regular rate Rhythm: regular rhythm GI: Inspection: normal to inspection Auscultation: normal bowel sounds Neuro: General: oriented to person DS: Data Data Completed and Pending Labs on day of discharge: Labs from last 24 hours 12/14/21 12/14/21 12/13/21 11:40 08:07 19:58 POC Capillary Glucose 179 H 137 H 299 H 12/13/21 16:40 POC Capillary Glucose 341 H Discharge Plan Discharge Attending physician on discharge: Darlene Dodge Consulting providers: ; Mushtaq Puente ; Narciso Hung ; Bassem Whittington ; Andrey Flores Discharging Clinician: Darlene Dodge Anticipated Discharge Date/Time: 12/14/21 14:16 Patient Disposition: Home, Self-Care Activity: as tolerated Diet: diabetic Discharge Instructions: [facility] [address] [place] [address] DISCHARGE INSTRUCTIONS - POST CARDIAC CATH Activity restrictions 1. No driving for 24 hours.
== END 2021-12-14 16:14 | disposition home or self-care (01) | DRG 287 ==
LOC: ANHED 20:34 → ANHIMU 22:35
PROVIDERS: Emergency Medicine; Specialist; Admitting Provider Internal Medicine; Emergency Provider Emergency Medicine; Visit Provider Family Medicine
PROC: 4A023N7 Measurement of Cardiac Sampling and Pressure, Left Heart, Percutaneous Approach (ICD-10-PCS; CPT 93452; principal; 2021-12-13 08:30)
DX: R07.89 Other chest pain (principal); N17.9 Acute kidney failure, unspecified; E11.69 Type 2 diabetes mellitus with other specified complication; E78.5 Hyperlipidemia, unspecified; E11.65 Type 2 diabetes mellitus with hyperglycemia; I15.2 Hypertension secondary to endocrine disorders; T50.995A Adverse effect of other drugs, medicaments and biological substances, initial encounter; K21.9 Gastro-esophageal reflux disease without esophagitis; Z79.84 Long term (current) use of oral hypoglycemic drugs
CPT/HCPCS: 36415; 71046; 78580; 80048; 80053; 82948; 83690; 84484; 85025; 85610; 85730; 93005; 93306; 93458; 96360; 96361; 96372; 99285; A9270; A9540; C1887; C1894; G0378; J1200; J1644; J1650; J1815; J2250; J3010; J7030; J7040; J7512

== ENCOUNTER 2025-09-06 17:18 | Emergency (ER) | payer MEDICARE, SELFPAY ==
--- NOTE | ~2025-09-06 | CT_ITS ---
CT abdomen pelvis wo con INDICATION:poss obstruction . COMPARISON: None. TECHNIQUE: Axial 2.5 mm images of the abdomen were obtained without IV or oral contrast. Diagnostic sensitivity is limited due to lack of IV contrast. FINDINGS: The lung bases are clear. The liver parenchyma is unremarkable. No intrahepatic mass or ductal dilatation is evident. The patient has had a cholecystectomy. The pancreas and spleen are normal in appearance. The adrenal glands are symmetric in size. The kidneys are unremarkable. No intrarenal stones are noted. There is no hydronephrosis. Exophytic left renal cyst measures 1.5 cm. Indeterminate 2.4 cm right renal cyst. There are fluid scattered throughout the small bowel loops and colon suggestive of enterocolitis. There is colonic diverticulosis without evidence of acute diverticulitis. The bladder and rectum are normal. No free intraperitoneal fluid or air is evident. There is no significant retroperitoneal lymphadenopathy. The aorta, visceral vessels and renal arteries demonstrate normal caliber. The lower thoracic and lumbar vertebrae are in normal alignment. IMPRESSION: Fluid scattered throughout the bowel loops suggestive of enterocolitis. Indeterminate 2.4 cm right renal cyst. All CT scans at this facility are performed using low dose modulation techniques as appropriate to perform exam including the following: automated exposure control; use of iterative reconstruction technique; adjustment of the mA and/or kV according to patient size (this includes techniques or standardized protocols for targeted exams where dose is matched to indication/reason for exam). Reviewed, dictated and finalized at location [facility] [employer] IMPRESSION: Fluid scattered throughout the bowel loops suggestive of enterocolitis. Indeterminate 2.4 cm right renal cyst. All CT scans at this facility are performed using low dose modulation techniqu es as appropriate to perform exam including the following: automated exposure c ontrol; use of iterative reconstruction technique; adjustment of the mA and/or kV according to patient size (this includes techniques or standardized protocol s for targeted exams where dose is matched to indication/reason for exam).
[2025-09-06 17:46] VITALS: BP 115/72; PULSE 112; RESP 20; TEMP 36.4; O2SAT 97
[2025-09-06 17:57] VITALS: BP 136/73; PULSE 95; RESP 18; O2SAT 99
[2025-09-06 18:00] VITALS: BP 129/96; PULSE 101; RESP 21; O2SAT 98
--- OUTSIDE RECORDS SUMMARY | 2025-09-06 18:27 | XMS_ITS | Encounter Summary ---
Author Organization [facility] Address [address] [place] [address] Care Team Providers Care Sales Operations Consultant Name Role Phone Hong Hough MD Primary Care Provider [phone] Reason for Visit * Reason Onset Date Comments New patient 01/30/[address] Charles on cell phone Encounter Details Date Type Department Care Team (Late st Contact Info) Description 01/30/2021 Telephone [facility] Admitting [id number] [place] [address] [place] [id number] [address] New patient (Gave message to dr. Charles on cell phone) Social History Tobacco Use Types Packs/Day Years Used Date Smoking Tobacco: Never Smokeless Tobacco: Never Alcohol Use Standard Drinks/Week Comments Never 0 (1 standard drink = 0.6 oz pur e alcohol) Comments Unknown Sex and Gender Information Value Date Recorded Sex Assigned at Not on file Legal Sex Female 11:07 PM CDT Gender Identity Not on file Sexual Orientation Not on file COVID-19 Exposure Response Date Recorded In the last month, have you been in contact with someone who was confirmed or suspected to have Coronavirus / COVID-19? 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 04/2017 unknown source 05/02/2017 02/01/2021 6:09 AM CDT R/O COVID-19 09/06/2021 09/06/2021 09/06/2021 11:5 2 AM YOUTH WORKER COVID-19 Comment:Full-J&J (per ED note) 09/06/2021 09/06/2021 2 1:16 AM YOUTH WORKER documented as of this encounter Care Teams Sales Operations Consultant Relationship Specialty Start Date End Date Hong Hough MD [address] [place] [address] PCP - General Family Practice 01/30/21 documented as of this encounter
--- OUTSIDE RECORDS SUMMARY | 2025-09-06 18:27 | XMS_ITS | Clinical Summary ---
Author Organization [facility] Address [address] [place] [address] Phone Care Team Providers Care Sr. Merchandise Planner Name Role Phone Hong Hough MD Primary Care Provider [phone] Allergies Active Allergy Reactions Criticality Noted Date Comments Iodinated Contrast Media Hives High 01/30/2021 Penicillins Anaphylaxis High 01/30/2021 Medications famotidine (PEPCID) 40 mg tablet Take 40 mg by mouth daily. Active allopurinoL (ZYLOPRIM) 100 mg tablet Take 100 mg by mouth daily. Active oxyCODONE-aceta minophen (PERCOCET) 10-325 mg Tablet Take 1 Tablet by mouth every 6 hours as needed for Pain, Severe. Active naloxone (NARCAN) 4 mg/spray [place], Non-Aerosol EMERGENCY USE ONLY: Administer 1 spray (4 mg) in one nostril one time. May repeat in alternating nostrils every 2-3 min until responsive or EMS arrives. 2 Each 3 1 Active atorvastatin (LIPITOR) 40 mg tablet Take 1 Tablet (40 mg) by mouth daily. 30 Tablet 1 Active carvediloL (COREG) 6.25 mg tablet Take 1 Tablet (6.25 mg) by mouth 2 times daily with meals. 60 Tablet 1 Active insulin lispro (HumaLOG) 100 unit/mL pen syringe Inject 20 Units by subcutaneous injection daily with breakfast AND 20 Units daily with lunch AND 20 Units daily with supper. ADD SLIDING SCALE OF 0-7 Units with each mealtime dose. 15 mL 1 Active NIFEdipine (PROCARDIA XL) 90 mg Extended Release 24 hour tablet Take 1 Tablet (90 mg) by mouth daily. 30 Tablet 1 Active insulin detemir U-100 (LEVEMIR) 100 unit/mL pen syringe Inject 20 Units by subcutaneous injection every night at bedtime. 15 mL 1 09/12/2021 6:04 PM BOAT ASSEMBLER 1 Active dexAMETHasone (DECADRON) 6 mg Tablet Take 1 Tablet (6 mg) by mouth daily. 4 Tablet 09/12/2021 6:04 PM BOAT ASSEMBLER 1 Active guaiFENesin (ROBITUSSIN) 100 mg/5 mL solution Take 10 mL (200 mg) by mouth every 4 hours as needed for Cough. 118 mL 09/12/2021 6:04 PM BOAT ASSEMBLER 1 Active albuterol sulfate 90 mcg/Actuation inhaler Take 2 Puffs by inhalation every 6 hours as needed for Shortness of Breath. 8.5 Gram 09/12/2021 6:04 PM BOAT ASSEMBLER 1 Active Insulin [place], Disposable, (Comfort EZ Pen [place]) 31 gauge x 5/16 Needle Use to inject insulin as directed. 100 Each 09/12/2021 6:04 PM BOAT ASSEMBLER 1 Active Active Problems Patient Care Coordination No te Formatting of this note migh t be different from the original. Deputy Sheriff Custody - Dr. Jenaro Benitez [facility] - [address] [facility] Problem Noted Date Diagnosed Date 2018 novel coronavirus disease (COVID-19) 2020 Atherosclerosis of [place] co ronary artery of [place] heart without angina pectoris 02/06/2021 Other hyperlipidemia 02/06/2021 Essential hypertension 01/30/2021 Chest pain 01/30/2021 Elevated troponin 01/30/2021 Overview (01/30/2021): Added automatically from request for surgery Hypoxic episode 01/30/2021 Poorly-controlled hypertension 01/30/2021 Pure hypercholesterolemia 01/18/2014 Diabetes mellitus 02/03/2013 Gout NSTEMI (non-ST elevated myocardial infarction) ELVIN (acute kidney injury) Debility Family History Medical History Relation Name Comments Diabetes Daughter Unknown Father Heart Disease Mother CHF Relation Name Status Comments Daughter Alive Father Mother Social History Tobacco Use Types Packs/Day Years Used Date Smoking Tobacco: Never Smokeless Tobacco: Never Alcohol Use Standard Drinks/Week Comments Never 0 (1 standard drink = 0.6 oz pur e alcohol) Comments Unknown Sex and Gender Information Value Date Recorded Sex Assigned at Not on file Legal Sex Female 11:07 PM CDT Gender Identity Not on file Sexual Orientation Not on file Last Filed Vital Signs Vital Sign Reading Time Taken Comments Blood Pressure 130/80 03/26/2022 6:22 PM CDT Pulse 92 11/08/2021 8:52 PM BOAT ASSEMBLER Temperature 36.9 C (98.4 F) 03/26/2022 6:22 PM CDT Respiratory Rate 18 03/26/2022 6:22 PM CDT Oxygen Saturation 95% 03/26/2022 6:22 PM CDT Inhaled Oxygen Concentration - - Weight 106.6 kg (235 lb) 03/26/2022 6:22 PM CDT Height 167.6 cm (5' 6) 03/26/2022 6:22 PM CDT Body Mass Index 37.93 03/26/2022 6:22 PM CDT Plan of Treatment Health Maintenance Due Date Last Done Comments DIABETES ANNUAL FOOT EXAM 1961 DIABETES ANNUAL RETINAL EXAM 1961 DIABETES MICROALBUMIN ANNUAL SCREEN 1961 DTAP/TDAP/TD VACCINES (1 - Tdap) 1962 ZOSTER VACCINE (1 of 2) 1993 OSTEOPOROSIS SCREENING 2008 RSV VACCINE (60+ or ) (1 - 1-dose 75+ series) 2018 DIABETES HBA1C Q 6 MONTHS 08/02/2021 01/30/2021 LDL CHOLESTEROL ANNUAL 01/30/2022 01/30/2021, 2020 INFLUENZA VACCINE (#1) 2025 9, 07/03/2018, 06/11/2017, Additional history exists PNEUMOCOCCAL VACCINE 50+ YEARS Completed 0 03/23/2021, 06/11/2017, 09/11/2016 Procedures Procedure Name Priority Date/Time Associated Diagnosis Comments LIPID PANEL Routine 01/30/2021 10:11 AM CDT HEMOGLOBIN A1C Stat 01/30/2021 3:57 AM CDT from Last 3 Months or Most Recently Relevant to Health Maintenance Results * LIPID PANEL (01/30/2021 10:11 AM CDT) CHOLESTEROL 166 <200 mg/dL 01/30/2021 11:[address] [facility] TRIGLYCERIDE 92 <150 mg/dL 01/30/2021 11:[address] [facility] HDL 58 40 - 59 mg/dL 01/30/2021 11:[address] [facility] LDL CALCULATED 90 <100 mg/dL 01/30/2021 11:[address] [facility] NON-HDL CHOLESTEROL 108 <130 mg/dL 01/30/2021 11:[address] [facility] Blood Venipuncture / Unknown 01/30/2021 10:11 AM CDT 01/30/2021 10:45 AM CDT [facility] - 01/30/2021 11:46 AM CDT TOTAL CHOLESTEROL mg/dL Desirable <200 Borderline high 200-239 High >=240 TRIGLYCERIDES mg/dL Normal <150 Borderline high 150-199 High 200-499 Very high >=500 HDL CHOLESTEROL mg/dL Low <40 Normal 40-59 Desirable >=60 NON HDL CHOLESTEROL mg/dL Optimal <130 Near Optimal 130-159 Borderline High 160-189 Very High >=190 CALCULATED LDL mg/dL LDL <70, OPTIMAL if have Atherosclerotic cardiovascular disease (ASCVD) or intermediate or higher (>7.5%) 10 year risk of ASCVD including most adults with diabetes. LDL <100, Optimal in adult patients with low (<7.5%) 10 year ASCVD risk LDL 100-160, Suboptimal LDL >160, High LDL >190, Very high ATPIII Guidelines Reference Ranges for Lipid Panels (NCEP/AMA) . us Stewart Benitez MD CHEMISTRY ORDERABLES Final Re sult [facility] CLIA# [id number] [address] [place] [address] * (ABNORMAL) HEMOGLOBIN A1C (01/30/2021 3:57 AM CDT) HEMOGLOBIN A1C 11.0(H) <=5.6 % 01/30/2021 8:51 AM CDT [facility] EST. AVG GLUCOSE, A1C 269 mg/dL 01/30/2021 8:[address] [facility] Blood Venipuncture / Unknown 01/30/2021 3:57 AM CDT 01/30/2021 4:14 AM CDT Narrative [facility] - 01/30/2021 8:51 AM CDT HGB A1C INTERPRETATION NORMAL: <5.7% PRE-DIABETES: 5.7 - 6.4% DIABETES: 6.5% OR GREATER Clementina Alcala NP CHEMISTRY ORDERABLES Final R esult [facility] CLIA# [id number] [address] [place] [address] from Last 3 Months or Most Recently Relevant to Health Maintenance Insurance MEDICARE PART A AND B MEDICAID [place] [employer] (INTERNAL) [facility] Commercial Advance Directives For more information, please contact: [phone] * Full Code (Latest Code Status on File) Date Activated Date Inactivated Comments 09/06/2021 3:39 PM 09/12/2021 5:19 PM * Full Code Date Activated Date Inactivated Comments 01/30/2021 8:59 AM 02/03/2021 7:39 PM * Default Full Code - Needs Discussion Date Activated Date Inactivated Comments 01/30/2021 7:49 AM 01/30/2021 8:59 AM Care Teams Sr. Merchandise Planner Relationship Specialty Start Date End Date Hong Hough MD [address] [place] [address] [place] [address] PCP - General Family Practice 01/30/21
--- OUTSIDE RECORDS SUMMARY | 2025-09-06 18:27 | XMS_ITS | Encounter Summary ---
Author Organization [facility] Address [address] [place] [address] Care Team Providers Care Manager Location Name Role Phone Hong Hough MD Primary Care Provider [phone] Reason for Visit * Reason Onset Date Comments COVID 09/07/2021 Left voicemail m essage for Dr. Heath at office Encounter Details Date Type Department Care Team (Late st Contact Info) Description 09/07/2021 Telephone [facility] [address] [place] [address] [place] [address] [address] COVID (Left voicemail message for Dr. Heath at office) Social History Tobacco Use Types Packs/Day Years [...] or suspected to have Coronavirus / COVID-19? Yes 09/06/2021 11:04 AM DOT COMPLIANCE COORDINATOR documented as of this encounter Plan of Treatment Not on file documented as of this encounter Visit Diagnoses Not on filedocumented in this encounter Additional Health Concerns Infection Onset Date Last Indicated Resolved Time COVID-19 Comment:Full-J&J (per ED note) 09/06/2021 09/06/2021 01/04/202 2 1:16 AM DOT COMPLIANCE COORDINATOR documented as of this encounter Care Teams Manager Location Relationship Specialty Start Date End Date Hong Hough MD [address] [place] [id number] PCP - General Family Practice 01/30/21 documented as of this encounter
--- OUTSIDE RECORDS SUMMARY | 2025-09-06 18:27 | XMS_ITS ---
Author Organization [facility] Care Team Providers Care Varnishing Unit Operator Name Role Phone Varun Childers Unavailable Unavailable Almaz, Adrien Unavailable Unavailable Allergies and adverse reactions Code CodeSystem Substance Reaction Severity StartDate Concern Status Contrast media Skin reaction - finding (code- 269905468, SNOMED CT) Mild 02/04/[address] Iodinated Diagnostic Agents Unknown 02/05/[address] Penicillins Photosensitivit y (code- 84090864, SNOMED CT) Moderate 02/04/2021 active Care Team Name Role Address Phone Organization Dates Adrien Ampadu PCP [address] [place], [place], [facility], [place] (Office): : : [facility] 02/04/2021 - 03/30/2021 Varun Childers [address], [place], [place], [facility], [place] (Office): : : [facility] 02/04/2021 - 03/30/2021 Immunizations Immunization Status Vaccine Details Vaccine Code CodeSystem Date Notes Prevnar 13 completed pneumococcal conjugate vaccine, 13 valent lotNumber: [id number] expiry: 01/21/2023 Given intramuscularly 133 CVX created date: 03/23/2021 consent date: 03/23/2021 administere d date: 03/23/2021 SARS-COV-2 (COVID-19) completed SARS-COV-2 (COVID-19) vaccine, vector non-replicating, recombinant spike protein-Ad26, preservative free, 0.5 mL Mfg: [employer] Given intramuscularly Step 1 of Multi-step 212 CVX created date: 03/13/2021 consent date: 03/13/2021 administere d date: 03/10/2021 Mental Status Section Date Assessment Total Score Description 03/30/2021 CAM 0 No delirium ind icated 02/10/2021 BIMS 15 cognitively int act CAM 0 No delirium ind icated PHQ-9 09 mild depression Insurance Providers Coverage Status Coverage Type Relationship to Subscriber Member Identifier Subscriber Identifier Group Identifier Payer Identifier and Other information Code: 1 Code System OID:[email or web address] 0.1.014574. 3.221.5 Code System Name: Source of Payment Typology ([facility]) Display: Medicare Translation : Code: [place] Code System: OID:[email or web address] 0.1.364029. 6.255.1336 Code System Name: Insurance Type Code ([id number]) Display Name: Medicare Part A Problems Problem # Description Date of onset Resolved Date Code CodeSystem Concern Status 1 COGNITIVE COMMUNICATION DEFICIT 02/07/[address] active 2 NEED FOR ASSISTANCE WITH PERSONAL CARE 02/07/[address] active 3 OTHER ABNORMALITIES OF GAIT AND MOBILITY 02/07/[address] active 4 OTHER LACK OF COORDINATION 02/07/[address] active 5 UNSTEADINESS ON FEET 02/07/[address] active 6 WEAKNESS 02/07/[address] active 7 ACUTE KIDNEY FAILURE, UNSPECIFIED 02/04/[address] active 8 ALLERGY STATUS TO OTHER DRUGS, MEDICAMENTS AND BIOLOGICAL SUBSTANCES 02/04/[address] active 9 CARDIAC ARRHYTHMIA, UNSPECIFIED 02/04/[address] active 10 CHEST PAIN, UNSPECIFIED 02/04/[address] active 11 ESSENTIAL (PRIMARY) HYPERTENSION 02/04/[address] active 12 GASTRO-ESOPHAGEAL REFLUX DISEASE WITHOUT ESOPHAGITIS 02/04/[address] active 13 GOUT, UNSPECIFIED 02/04/[address] active 14 HYPERTENSIVE EMERGENCY 02/04/[address] active 15 HYPOXEMIA 02/04/[address] active 16 PRISON (CURRENT) USE OF INSULIN 02/04/[address] active 17 NON-ST ELEVATION (NSTEMI) MYOCARDIAL INFARCTION 02/04/[address] active 18 OTHER MALAISE 02/04/[address] active 19 OTHER SPECIFIED ABNORMALITIES OF PLASMA PROTEINS 02/04/[address] active 20 PURE HYPERCHOLESTEROLE FRANDY, UNSPECIFIED 02/04/[address] active 21 TYPE 2 DIABETES MELLITUS WITHOUT COMPLICATIONS 02/04/[address] active Reason for Referral No Reasons for Referral Entered Social History Social History Observation Description Start Date End Date Code Code System Current Smoking Status Tobacco smoking consumption unknown 955851524 SNOMED CT Sex Assigned At Female 1945 [address]-5 [facility] Gender Identity Sexual Orientation Vital Signs Code Code System Vitals Name Values and Units Timing Information 9279-1 [facility] Respiratory Rate Value=20.0 Units=/m in 03/12/2021 8462-4 [facility] Blood Pressure-Diastolic Value=66 Un its=mmHg 03/12/2021 8480-6 [facility] Blood Pressure-Systolic Eeatm=962 Un its=mmHg 03/12/2021 8310-5 [facility] Body Temperature Value=96.9 Units= F 03/12/2021 8867-4 [facility] Heart rate Value=70.0 Units=/min 65448-6 [facility] O2 % BldC Oximetry Value=97.0 Units= % 03/12/2021 18378-8 [facility] Weight Mwdhw=649.0 Units=Lbs 04/2021 2339-0 [facility] Blood Sugar Tdyqa=587.0 Units=mg/dL 02/08/2021 8302-2 LOINC Height Value=65.0 Units=Inches 02/07/2021 64543-9 INC Pain Level Value=0.0 02/04/2021
--- OUTSIDE RECORDS SUMMARY | 2025-09-06 18:27 | XMS_ITS ---
Author Organization [facility] Care Team Providers Care Airway Traffic Controller Name Role Phone Varun Childers Unavailable Unavailable Almaz, Adrien Unavailable Unavailable Allergies and adverse reactions Code CodeSystem Substance Reaction Severity StartDate Concern Status Contrast media Skin reaction - finding (code- 762844344, SNOMED CT) Mild 02/04/[address] Iodinated Diagnostic Agents Unknown 02/05/[address] Penicillins Photosensitivit y (code- 08797504, SNOMED CT) Moderate 02/04/2021 active Care Team Name Role Address Phone Organization Dates Adrien Ampadu PCP [address] [place], [place], [facility], [place] (Office): : : [facility] 02/04/2021 - 03/30/2021 Varun Childers [address], [place], [place], [facility], [place] (Office): : : [facility] 02/04/2021 - 03/30/2021 Immunizations Immunization Status Vaccine Details Vaccine Code CodeSystem Date Notes Prevnar 13 completed pneumococcal conjugate vaccine, 13 valent lotNumber: [id number] expiry: 01/21/2023 Given intramuscularly 133 CVX created [...] Other information Code: 1 Code System OID:[email or web address] 0.1.375834. 3.221.5 Code System Name: Source of Payment Typology ([facility]) Display: Medicare Translation : Code: [place] Code System: OID:[email or web address] 0.1.282051. 6.255.1336 Code System Name: Insurance Type Code ([id number]) Display Name: Medicare Part A Problems Problem # Description Date of onset Resolved Date Code CodeSystem Concern Status 1 COGNITIVE COMMUNICATION DEFICIT 02/07/[address] active 2 NEED FOR ASSISTANCE WITH PERSONAL CARE 02/07/[address] active 3 OTHER ABNORMALITIES OF GAIT AND MOBILITY 02/07/[address] active 4 OTHER LACK OF COORDINATION 02/07/[address] active 5 UNSTEADINESS ON FEET 02/07/[address] active 6 WEAKNESS 02/07/[address] active 7 ACUTE KIDNEY FAILURE, UNSPECIFIED 02/04/[address] active 8 ALLERGY STATUS TO OTHER DRUGS, MEDICAMENTS AND BIOLOGICAL SUBSTANCES 02/04/[address] active 9 CARDIAC ARRHYTHMIA, UNSPECIFIED 02/04/[address] active 10 CHEST PAIN, UNSPECIFIED 02/04/[address] active 11 ESSENTIAL (PRIMARY) HYPERTENSION 02/04/[address] active 12 GASTRO-ESOPHAGEAL REFLUX DISEASE WITHOUT ESOPHAGITIS 02/04/[address] active 13 GOUT, UNSPECIFIED 02/04/[address] active 14 HYPERTENSIVE EMERGENCY 02/04/[address] active 15 HYPOXEMIA 02/04/[address] active 16 NURSING HOME (CURRENT) USE OF INSULIN 02/04/[address] active 17 NON-ST ELEVATION (NSTEMI) MYOCARDIAL INFARCTION 02/04/[address] active 18 OTHER MALAISE 02/04/[address] active 19 OTHER SPECIFIED ABNORMALITIES OF PLASMA PROTEINS 02/04/[address] active 20 PURE HYPERCHOLESTEROLE FRANDY, UNSPECIFIED 02/04/[address] active 21 TYPE 2 DIABETES MELLITUS WITHOUT COMPLICATIONS 02/04/[address] active Reason for Referral No Reasons for Referral Entered Social History Social History Observation Description Start Date End Date Code Code System Current Smoking Status Tobacco smoking consumption unknown 445297021 SNOMED CT Sex Assigned At Female 1945 [address]-0 [facility] Gender Identity Sexual Orientation Vital Signs Code Code System Vitals Name Values and Units Timing Information 9279-1 [facility] Respiratory Rate Value=20.0 Units=/m in 03/12/2021 8462-4 [facility] Blood Pressure-Diastolic Value=66 Un its=mmHg 03/12/2021 8480-6 [facility] Blood Pressure-Systolic Bqhas=470 Un its=mmHg 03/12/2021 8310-5 [facility] Body Temperature Value=96.9 Units= F 03/12/2021 8867-4 [facility] Heart rate Value=70.0 Units=/min 29240-8 [facility] O2 % BldC Oximetry Value=97.0 Units= % 03/12/2021 81499-8 [facility] Weight Lvzhx=747.0 Units=Lbs 04/2021 2339-0 [facility] Blood Sugar Gypvz=309.0 Units=mg/dL 02/08/2021 8302-2 LOINC Height Value=65.0 Units=Inches 02/07/2021 23056-3 INC Pain Level Value=0.0 02/04/2021
[2025-09-06 18:31] VITALS: BP 104/65; PULSE 95; RESP 17; O2SAT 98
--- NOTE | 2025-09-06 18:37 | ED.ABDPAIN ---
HPI - Abdominal Pain General Chief Complaint: Abdominal Pain Stated Complaint: abd pain Time Seen by Provider: 09/06/25 18:10 Source: patient and EMS Mode of arrival: EMS Limitations: no limitations History of Present Illness HPI narrative: This is an 79-year-old female with history of hypertension, hyperlipidemia, diabetes, prior colectomy due to colonic perforation due to unknown reason who presents to the ED for abdominal pain. Patient states that for the past 8 hours or so, she has been having diffuse abdominal pain worse in the periumbilical region. She has had nausea and emesis x8 that has been green in color. She has never had this issue before. Last normal bowel movement was earlier today. Denies fevers, chills, chest pain, shortness of breath. Related Data Home Medications ?Medication ?Instructions ?Recorded ?Confirmed ?Last Taken ?Type atorvastatin 10 mg tablet 10 mg PO DAILY 12/11/21 12/11/21 Unknown History losartan 25 mg tablet 25 mg PO DAILY 12/11/21 12/11/21 Unknown History metformin 1,000 mg tablet 1,000 mg PO DAILY 12/11/21 12/11/21 Unknown History nifedipine 90 mg tablet,extended 90 mg PO DAILY 12/11/21 12/11/21 Unknown History release trazodone 50 mg tablet 50 mg PO HS 12/11/21 12/11/21 Unknown History Allergies Allergy/AdvReac Type Severity Reaction Status Date / Time Iodinated Contrast Media Allergy Unknown Hives Verified 09/06/25 17:49 Penicillins Allergy Unknown Hives Verified 09/06/25 17:49 Review of Systems Review of Systems: Gen.: Denies fevers or chills Eyes: Denies eye pain or visual change ENT: Denies congestion Respiratory: Denies shortness of breath or cough CV: Denies chest pain or palpitations GI: As per HPI denies burning, urgency, frequency or hematuria Musculoskeletal: Denies back pain or muscle pain Neuro: Denies numbness, tingling, weakness or focal weakness Skin: Denies rash Except as documented, all other systems reviewed and negative [facility] Past Medical History Medical History Hyperlipidemia Hypertension Type 2 diabetes mellitus Family History Family History Mother Heart disease Congestive heart failure Social History Social History Smoking status: Never smoker Alcohol intake: never Substance use: never Substance use type: does not use Spiritual care concerns: No Exam Narrative: APPEARANCE: Mild distress, nontoxic, resting in bed EYES: EOMI HEENT: Normocephalic, atraumatic, OMM RESPIRATORY: No respiratory distress Clear to auscultation bilaterally with no rhonchi wheezing or rales. CARDIOVASCULAR: Tachycardic with regular rhythm without murmurs rubs or gallops. ABDOMINAL: Soft, diffuse tenderness to palpation without rebound or guarding MUSCULOSKELETAl: Moves all extremities. No clubbing, cyanosis or edema. NEURO: Awake and alert. Following commands, speech normal, no focal deficits SKIN:: Warm, dry. No rashes lesions or abrasions PSYCHIATRIC: Normal affect/mood, Course Vital Signs Vital signs: Vital Signs Temperature 97.6 F 09/06/25 17:46 Pulse Rate 112 H 09/06/25 17:46 Respiratory Rate 20 09/06/25 17:46 Blood Pressure 115/72 09/06/25 17:46 Pulse Oximetry 97 09/06/25 17:46 Oxygen Delivery Room Air 09/06/25 17:46 Temperature 97.6 F 09/06/25 17:46 Pulse Rate 92 09/06/25 20:45 Respiratory Rate 16 09/06/25 20:45 Blood Pressure 126/64 09/06/25 20:45 Pulse Oximetry 95 09/06/25 20:45 Oxygen Delivery Room Air 09/06/25 17:46 [facility] Narrative Medical decision making narrative: 79-year-old female Presenting for nausea and vomiting. On initial evaluation patient was in mild distress afebrile, hemodynamic stable. Differentials include but are not limited to: Gastritis, gastroenteritis, enterocolitis, cancer, obstruction, dehydration, UTI Notable exam findings: Mildly dry mucous membranes, mild periumbilical abdominal tenderness to palpation without rebound or guarding I personally reviewed the patient's lab result. Notable lab findings: Leukocytosis at 12.4, mildly elevated creatinine at 0.34 without any other significant abnormalities on the CMP. UA consistent with a UTI. CT abdomen/pelvis was consistent with enteritis without obstruction I personally reviewed the patient's EKGs: Sinus rhythm rate of 92 with first-degree AV block, left anterior fascicular block, Q-waves in inferior leads, poor R-wave progression, no acute ST or T-wave changes Patient was given Zofran and morphine with significant improvement of symptoms. She was given IV fluids as well. Patient was feeling significantly better. She was also found have a UTI so she was given a dose of Rocephin. She will be given prescriptions for Zofran and Keflex. She was advised follow-up with PCP in the next week for re-evaluation. Patient was agreeable to this plan. Given strict return precautions. Differential Diagnosis Differential Diagnosis: Gastritis, gastroenteritis, enterocolitis, cancer, obstruction, dehydration, UTI Lab Data 09/06/25 18:45 09/06/25 18:45 Labs: Lab Results 09/06/25 09/06/25 Range/Units 18:45 19:43 WBC 12.4 H (4.5-10.0) K/mm3 RBC 3.83 L (4.2-5.4) M/mm3 Hgb 12.5 (12.0-15.0) g/dL Hct 37.4 (37.0-47.0) % MCV 97.7 (80-100) fl MCH 32.6 (26-34) pg MCHC 33.4 (32-36) g/dl RDW 15.9 H (11.5-14.5) % Plt Count 168 (150-375) k/mm3 MPV 10.1 (7.4-10.4) fl Immature Gran % (Auto) 0.4 (0-0.5) % Neut % (Auto) 80.6 H (45.5-73.1) % Lymph % (Auto) 11.1 L (18.3-44.2) % [place] % (Auto) 6.3 (2.6-8.5) % Eos % (Auto) 1.0 (0-4.4) % Baso % (Auto) 0.6 (0.2-1.2) % Lymph # (Auto) 1.38 (0.9-3.2) K/mm3 [place] # (Auto) 0.8 H (0.1-0.6) K/mm3 Eos # (Auto) 0.1 (0-0.3) K/mm3 Baso # (Auto) 0.1 (0.0-0.1) K/mm3 Abs Immat Gran (auto) 0.05 H (0.00-0.031) K/mm3 Absolute Neuts (auto) 10.0 H (1.3-6.7) K/mm3 Absolute Nucleated RBC 0.000 (0.0-0.012) K/mm3 Nucleated RBC % 0.0 (0.0-0.2) % Sodium 138 (137-145) mmol/L Potassium 4.5 (3.4-5.0) mmol/L Chloride 108 H (98-107) mmol/L Carbon Dioxide 21 L (22-30) mmol/L Anion Gap 9 (4-12) mmol/L BUN 17 (7-17) mg/dL Creatinine 1.34 H (0.7-1.0) mg/dL Estim Creat Clear Calc 33 ml/min Estimated GFR 38 L (59 - ) Glucose 148 H (65-110) mg/dL Calcium 8.7 (8.4-10.2) mg/dL Total Bilirubin 1.2 (0.2-1.3) mg/dL AST 28 (14-36) U/L ALT 16 (6-35) U/L Alkaline Phosphatase 86 (38-126) U/L Total Protein 6.9 (6.3-8.2) g/dL Albumin 3.6 (3.5-5.1) g/dL Urine Color Yellow (Yellow) Urine Appearance Cloudy H (Clear) Urine pH 6.5 (5.0-9.0) Ur Specific [place] 1.014 (1.001-1.035) Urine Protein Negative (Negative) mg/dL Urine Glucose (UA) Negative (Negative) mg/dL Urine Ketones Negative (Negative) mg/dL Ur Blood (Man) Negative (Negative) Urine Nitrate Negative (Negative) Urine Bilirubin Negative (Negative) Urine Urobilinogen 0.2 (<2.0) mg/dL Leukocyte Esterase Rfl Trace H (Negative) KASANDRA/UL Urine RBC 0-2 (0-2) /hpf Urine WBC 21-50 H (0-3) /hpf Ur Squamous Epith Cells None seen (Few) /hpf Urine Bacteria 4+ H /hpf Urine Casts 0-2 Imaging Data Radiologist's impression: ITS Impressions Abdomen/Pelvis CT 09/06/25 19:02 IMPRESSION: Fluid scattered throughout the bowel loops suggestive of enterocolitis. Indeterminate 2.4 cm right renal cyst. All CT scans at this facility are performed using low dose modulation techniques as appropriate to perform exam including the following: automated exposure control; use of iterative reconstruction technique; adjustment of the mA and/or kV according to patient size (this includes techniques or standardized protocols for targeted exams where dose is matched to indication/reason for exam). Discharge Plan Discharge Clinical Impression: Gastroenteritis, Acute UTI Patient Disposition: Home Condition: Stable Instructions: Antibiotic Form, Acute Nausea and Vomiting (DC), Urinary Tract Infection in Older Adults (ED) Additional Instructions: Scans were consistent with gastroenteritis. This is managed supportively. You were also found to have a UTI. Your given prescriptions for Zofran and Keflex, take these as prescribed. Follow-up with your PCP in the next week for re-evaluation. Return to the ED for any new or worsening symptoms. Patient Language: Mongolian Prescriptions: New cephalexin 500 mg capsule 500 mg PO Q12H Qty: 10 0RF ondansetron 4 mg tablet,disintegrating 4 mg PO Q8H PRN (Reason: nausea and vomiting) Qty: 12 0RF No Action trazodone 50 mg Tablet 50 mg PO HS atorvastatin 10 mg Tablet 10 mg PO DAILY nifedipine 90 mg Tablet Extended Release 90 mg PO DAILY metformin 1,000 mg Tablet 1,000 mg PO DAILY losartan 25 mg Tablet 25 mg PO DAILY pantoprazole [Protonix] 20 mg Tablet,Delayed Release (Dr/Ec) 20 mg PO QAM Qty: 30 0RF losartan 25 mg Tablet 25 mg PO DAILY Qty: 30 0RF aspirin [Children's Aspirin] 81 mg Tablet,Chewable 81 mg PO DAILY@0800 Qty: 60 0RF carvedilol [Coreg] 6.25 mg Tablet 6.25 mg PO BIDWM Qty: 60 0RF Follow-up/Referrals: PHYSICIAN NOT ON STAFF,NONSTAFF [Primary Care Provider]
--- NOTE | 2025-09-06 18:39 | ECG_ITS ---
Test Date: 2025-09-06 19:32:57 Measurements Intervals [place] Rate: 92 P: 102 ID: [id number] QRS: -56 QRSD: 109 T: 64 QT: 369 QTc: 458 Interpretive Statements SINUS RHYTHM WITH FIRST DEGREE AV BLOCK LEFT ANTERIOR FASCICULAR BLOCK POSSIBLE ANTERIOR MYOCARDIAL INFARCTION , PROBABLY OLD BORDERLINE ST-T WAVE ABNORMALITY- HIGH LATERAL LEADS BASELINE ARTIFACT- I, II, III, AVR, AVL, AVF, V1-V6 ABNORMAL ECG No previous ECG available for comparison Electronically Signed On 09-06-2025 19:56:38 MUSEUM DIRECTOR by Rob Son D.O.
[2025-09-06 18:52] LABS: Hematocrit 37.4 % (37.0-47.0); Hemoglobin 12.5 g/dL (12.0-15.0); Immature Granulocyte Percent A 0.4 % (0-0.5); Lymphocytes Absolute Auto 1.38 K/mm3 (0.9-3.2); Mean Corpuscular HGB Conc 33.4 g/dl (32-36); Mean Corpuscular Hemoglobin 32.6 pg (26-34); Mean Corpuscular Volume 97.7 fl (80-100); Nucleated Red Blood Cells Absolute Auto 0.000 K/mm3 (0.0-0.012); Nucleated Red Blood Cells Perc 0.0 % (0.0-0.2); Platelet Count Result 168 k/mm3 (150-375); Red Blood Count 3.83 M/mm3 (4.2-5.4); White Blood Count 12.4 K/mm3 (4.5-10.0)
[2025-09-06] MEDS: ONDANSETRON INJ 4 MG/2 ML VIAL IV PUSH (18:56)
[2025-09-06] MEDS: MORPHINE SULFATE (*CRX) 4 MG/ML INJ IV PUSH (18:56)
[2025-09-06] MEDS: SODIUM CHLORIDE 0.9% IV 1,000 ML 999 ML IV CONT (18:56)
--- OUTSIDE RECORDS SUMMARY | 2025-09-06 18:57 | XMS_ITS | Clinical Summary ---
Author Organization [facility] Address [address] [place] [address] Phone Care Team Providers Care Radiologic Electronic Specialist Name Role Phone Hong Hough MD Primary Care Provider [phone] Allergies Active Allergy Reactions Criticality Noted Date [...] Pain, Severe. Active naloxone (NARCAN) 4 mg/spray [place], Non-Aerosol EMERGENCY USE ONLY: Administer 1 spray [...] bedtime. 15 mL 1 09/12/2021 6:04 PM PROGRAM DIRECTOR 1 Active dexAMETHasone (DECADRON) 6 mg Tablet Take 1 Tablet (6 mg) by mouth daily. 4 Tablet 09/12/2021 6:04 PM PROGRAM DIRECTOR 1 Active guaiFENesin (ROBITUSSIN) 100 mg/5 mL solution Take 10 mL (200 mg) by mouth every 4 hours as needed for Cough. 118 mL 09/12/2021 6:04 PM PROGRAM DIRECTOR 1 Active albuterol sulfate 90 mcg/Actuation inhaler Take 2 Puffs by inhalation every 6 hours as needed for Shortness of Breath. 8.5 Gram 09/12/2021 6:04 PM PROGRAM DIRECTOR 1 Active Insulin [place], Disposable, (Comfort EZ Pen [place]) 31 gauge x 5/16 Needle Use to inject insulin as directed. 100 Each 09/12/2021 6:04 PM PROGRAM DIRECTOR 1 Active Active Problems Patient Care Coordination No te Formatting of this note migh t be different from the original. Research Soil Scientist - Dr. Jenaro Benitez [facility] Heart and Vascular - [address] [facility] Problem Noted Date Diagnosed Date 2018 novel coronavirus disease (COVID-19) 2020 Atherosclerosis of [place] ronary artery of [place] heart without angina pectoris 02/06/2021 Other hyperlipidemia [...] PM CDT Pulse 92 11/08/2021 8:52 PM PROGRAM DIRECTOR Temperature 36.9 C (98.4 F) 03/26/2022 6:22 [...] 166 <200 mg/dL 01/30/2021 11:46 AM CDT [facility] TRIGLYCERIDE 92 <150 mg/dL 01/30/2021 11:46 AM CDT [facility] HDL 58 40 - 59 mg/dL 01/30/2021 11:46 AM CDT [facility] LDL CALCULATED 90 <100 mg/dL 01/30/2021 11:46 AM CDT [facility] NON-HDL CHOLESTEROL 108 <130 mg/dL 01/30/2021 11:46 AM T [facility] Blood Venipuncture / Unknown 01/30/2021 10:11 AM CDT 01/30/2021 10:[address] [facility] - 01/30/2021 11:46 AM CDT TOTAL CHOLESTEROL [...] Benitez MD CHEMISTRY ORDERABLES Final Re sult [facility] CLIA# [id number] [place] [address] * (ABNORMAL) HEMOGLOBIN A1C (01/30/2021 3:57 AM CDT) HEMOGLOBIN A1C 11.0(H) <=5.6 % 01/30/2021 8:51 AM CDT [facility] EST. AVG GLUCOSE, A1C 269 mg/dL 01/30/2021 8:51 AM CDT [facility] Blood Venipuncture / Unknown 01/30/2021 3:57 AM CDT 01/30/2021 4:14 AM CDT Narrative [facility] - 01/30/2021 8:51 AM CDT HGB A1C INTERPRETATION NORMAL: <5.7% PRE-DIABETES: 5.7 - 6.4% DIABETES: 6.5% OR GREATER Clementina Alcala NP CHEMISTRY ORDERABLES Final R esult [facility] CLIA# [id number] [place] [address] from Last 3 Months or Most Recently Relevant to Health Maintenance Insurance MEDICARE PART A AND B MEDICAID [place] [employer] (INTERNAL) [facility] Plans RX [facility] Commercial Advance Directives For more information, please contact: [phone] * Full Code (Latest Code Status on File) Date Activated Date Inactivated Comments 09/06/2021 3:39 PM 09/12/2021 5:19 PM * Full Code Date Activated Date Inactivated Comments 01/30/2021 8:59 AM 02/03/2021 7:39 PM * Default Full Code - Needs Discussion Date Activated Date Inactivated Comments 01/30/2021 7:49 AM 01/30/2021 8:59 AM Care Teams Radiologic Electronic Specialist Relationship Specialty Start Date End Date Hong Hough MD [address] [place] [address] [place] [address] PCP - General Family Practice 01/30/21
--- OUTSIDE RECORDS SUMMARY | 2025-09-06 18:57 | XMS_ITS | Encounter Summary ---
Author Organization [facility] Address [address] [place] [address] Care Team Providers Care Extruding Department Supervisor Name Role Phone Hong Hough MD Primary Care Provider [phone] Reason for Visit * Reason Onset Date Comments New patient 01/30/[address] 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 04/2017 unknown source 05/02/2017 02/01/2021 6:09 AM CDT R/O COVID-19 09/06/2021 09/06/2021 09/06/2021 11:5 2 AM SAND MIXER COVID-19 Comment:Full-J&J (per ED note) 09/06/2021 09/06/2021 2 1:16 AM SAND MIXER documented as of this encounter Care Teams Extruding Department Supervisor Relationship Specialty Start Date End Date Hong Hough MD [address] [place] [address] PCP - General Family Practice 01/30/21 documented as of this encounter
--- OUTSIDE RECORDS SUMMARY | 2025-09-06 18:57 | XMS_ITS ---
Author Organization [facility] Care Team Providers Care Bond Analyst Name Role Phone Varun Childers Unavailable Unavailable Almaz, Adrien Unavailable Unavailable Allergies and adverse reactions Code CodeSystem Substance Reaction Severity StartDate Concern Status Contrast media Skin reaction - finding (code- 400667946, SNOMED CT) Mild 02/04/[address] Iodinated Diagnostic Agents Unknown 02/05/[address] Penicillins Photosensitivit y (code- 94289366, SNOMED CT) Moderate 02/04/2021 active Care Team Name Role Address Phone Organization Dates Adrien Ampadu PCP [address] [place], [place], [facility] [place] (Office): : : [facility] 02/04/2021 - 03/30/2021 Varun Childers [address], [place], [place], [facility], [place] (Office): : : [facility] 02/04/2021 - 03/30/2021 Immunizations Immunization Status Vaccine Details Vaccine Code CodeSystem Date Notes Prevnar 13 completed pneumococcal conjugate vaccine, 13 valent lotNumber: [id number] expiry: 01/21/2023 Given intramuscularly 133 CVX created [...] Other information Code: 1 Code System OID:2.16.84 0.1.558323. 3.221.5 Code System Name: Source of Payment Typology ([facility]) Display: Medicare Translation : Code: [place] Code System: OID:2.16.84 0.1.421607. 6.255.1336 Code System Name: Insurance Type Code ([id number]) Display Name: Medicare Part A Problems Problem # Description Date of onset Resolved Date Code CodeSystem Concern Status 1 COGNITIVE COMMUNICATION DEFICIT 02/07/[address] active 2 NEED FOR ASSISTANCE WITH PERSONAL CARE 02/07/[address] active 3 OTHER ABNORMALITIES OF GAIT AND MOBILITY 02/07/[address] active 4 OTHER LACK OF COORDINATION 02/07/[address] active 5 UNSTEADINESS ON FEET 02/07/[address] active 6 WEAKNESS 02/07/[address] active 7 ACUTE KIDNEY FAILURE, UNSPECIFIED 02/04/[address] active 8 ALLERGY STATUS TO OTHER DRUGS, MEDICAMENTS AND BIOLOGICAL SUBSTANCES 02/04/[address] active 9 CARDIAC ARRHYTHMIA, UNSPECIFIED 02/04/[address] active 10 CHEST PAIN, UNSPECIFIED 02/04/[address] active 11 ESSENTIAL (PRIMARY) HYPERTENSION 02/04/[address] active 12 GASTRO-ESOPHAGEAL REFLUX DISEASE WITHOUT ESOPHAGITIS 02/04/[address] active 13 GOUT, UNSPECIFIED 02/04/[address] active 14 HYPERTENSIVE EMERGENCY 02/04/[address] active 15 HYPOXEMIA 02/04/[address] active 16 SENIOR LIVING (CURRENT) USE OF INSULIN 02/04/[address] active 17 NON-ST ELEVATION (NSTEMI) MYOCARDIAL INFARCTION 02/04/[address] active 18 OTHER MALAISE 02/04/[address] active 19 OTHER SPECIFIED ABNORMALITIES OF PLASMA PROTEINS 02/04/[address] active 20 PURE HYPERCHOLESTEROLE FRANDY, UNSPECIFIED 02/04/[address] active 21 TYPE 2 DIABETES MELLITUS WITHOUT COMPLICATIONS 02/04/[address] active Reason for Referral No Reasons for Referral Entered Social History Social History Observation Description Start Date End Date Code Code System Current Smoking Status Tobacco smoking consumption unknown 028121534 SNOMED CT Sex Assigned At Female 1945 22279-6 [facility] Gender Identity Sexual Orientation Vital Signs Code Code System Vitals Name Values and Units Timing Information 9279-1 [facility] Respiratory Rate Value=20.0 Units=/m in 03/12/2021 8462-4 [facility] Blood Pressure-Diastolic Value=66 Un its=mmHg 03/12/2021 8480-6 [facility] Blood Pressure-Systolic Ylhou=433 Un its=mmHg 03/12/2021 8310-5 [facility] Body Temperature Value=96.9 Units= F 03/12/2021 8867-4 [facility] Heart rate Value=70.0 Units=/min 83706-8 [facility] O2 % BldC Oximetry Value=97.0 Units= % 03/12/2021 44826-4 [facility] Weight Okbla=157.0 Units=Lbs 04/2021 2339-0 [facility] Blood Sugar Ggfkd=707.0 Units=mg/dL 02/08/2021 8302-2 LO[facility] Height Value=65.0 Units=Inches 02/07/2021 02264-5 INC Pain Level Value=0.0 02/04/2021
--- OUTSIDE RECORDS SUMMARY | 2025-09-06 18:57 | XMS_ITS | Encounter Summary ---
Author Organization [facility] Address [address] [place] [address] Care Team Providers Care Icu Clerk Name Role Phone Hong Hough MD Primary Care Provider [phone] Reason for Visit * Reason Onset Date Comments COVID 09/07/2021 Left voicemail m essage for Dr. Heath at office Encounter Details Date Type Department Care Team (Late st Contact Info) Description 09/07/2021 Telephone [facility] Admitting [address] [place] [address] [place] [address] [address] COVID (Left voicemail message for [...] Coronavirus / COVID-19? Yes 09/06/2021 11:04 AM PANTS CLOSER documented as of this encounter Plan of Treatment Not on file documented as of this encounter Visit Diagnoses Not on filedocumented in this encounter Additional Health Concerns Infection Onset Date Last Indicated Resolved Time COVID-19 Comment:Full-J&J (per ED note) 09/06/2021 09/06/2021 01/04/202 2 1:16 AM PANTS CLOSER documented as of this encounter Care Teams Icu Clerk Relationship Specialty Start Date End Date Hong Hough MD [address] [place] [phone] PCP - General Family Practice 01/30/21 documented as of this encounter
--- OUTSIDE RECORDS SUMMARY | 2025-09-06 18:57 | XMS_ITS ---
Author Organization [facility] Care Team Providers Care Scaling Machine Operator Name Role Phone Varun Childers Unavailable Unavailable Almaz, Adrien Unavailable Unavailable Allergies and adverse reactions Code CodeSystem Substance Reaction Severity StartDate Concern Status Contrast media Skin reaction - finding (code- 181924479, SNOMED CT) Mild 02/04/[address] Iodinated Diagnostic Agents Unknown 02/05/[address] Penicillins Photosensitivit y (code- 34407533, SNOMED CT) Moderate 02/04/2021 active Care Team Name Role Address Phone Organization Dates Adrien Ampadu PCP [address] [place], [place], [facility], [place] (Office): : : [facility] 02/04/2021 - 03/30/2021 Varun Childers [address], [place], [place], [facility], [place] (Office): : : [facility] 02/04/2021 - 03/30/2021 Immunizations Immunization Status Vaccine Details Vaccine Code CodeSystem Date Notes Prevnar 13 completed pneumococcal conjugate vaccine, 13 valent lotNumber: [id number] expiry: 01/21/2023 Given intramuscularly 133 CVX created [...] Other information Code: 1 Code System OID:[email or web address] [id number]. 3.221.5 Code System Name: Source of Payment Typology ([facility]) Display: Medicare Translation : Code: [place] Code System: OID:2.16.84 [id number]. 6.255.1336 Code System Name: Insurance Type Code ([id number]) Display Name: Medicare Part A Problems Problem # Description Date of onset Resolved Date Code CodeSystem Concern Status 1 COGNITIVE COMMUNICATION DEFICIT 02/07/[address] active 2 NEED FOR ASSISTANCE WITH PERSONAL CARE 02/07/[address] active 3 OTHER ABNORMALITIES OF GAIT AND MOBILITY 02/07/[address] active 4 OTHER LACK OF COORDINATION 02/07/[address] active 5 UNSTEADINESS ON FEET 02/07/[address] active 6 WEAKNESS 02/07/[address] active 7 ACUTE KIDNEY FAILURE, UNSPECIFIED 02/04/[address] active 8 ALLERGY STATUS TO OTHER DRUGS, MEDICAMENTS AND BIOLOGICAL SUBSTANCES 02/04/[address] active 9 CARDIAC ARRHYTHMIA, UNSPECIFIED 02/04/[address] active 10 CHEST PAIN, UNSPECIFIED 02/04/[address] active 11 ESSENTIAL (PRIMARY) HYPERTENSION 02/04/[address] active 12 GASTRO-ESOPHAGEAL REFLUX DISEASE WITHOUT ESOPHAGITIS 02/04/[address] active 13 GOUT, UNSPECIFIED 02/04/[address] active 14 HYPERTENSIVE EMERGENCY 02/04/[address] active 15 HYPOXEMIA 02/04/[address] active 16 FPC (CURRENT) USE OF INSULIN 02/04/[address] active 17 NON-ST ELEVATION (NSTEMI) MYOCARDIAL INFARCTION 02/04/[address] active 18 OTHER MALAISE 02/04/[address] active 19 OTHER SPECIFIED ABNORMALITIES OF PLASMA PROTEINS 02/04/[address] active 20 PURE HYPERCHOLESTEROLE FRANDY, UNSPECIFIED 02/04/[address] active 21 TYPE 2 DIABETES MELLITUS WITHOUT COMPLICATIONS 02/04/[address] active Reason for Referral No Reasons for Referral Entered Social History Social History Observation Description Start Date End Date Code Code System Current Smoking Status Tobacco smoking consumption unknown 488717075 SNOMED CT Sex Assigned At Female 1945 89074-0 [facility] Gender Identity Sexual Orientation Vital Signs Code Code System Vitals Name Values and Units Timing Information 9279-1 [facility] Respiratory Rate Value=20.0 Units=/m in 03/12/2021 8462-4 [facility] Blood Pressure-Diastolic Value=66 Un its=mmHg 03/12/2021 8480-6 [facility] Blood Pressure-Systolic Dbffc=123 Un its=mmHg 03/12/2021 8310-5 [facility] Body Temperature Value=96.9 Units= F 03/12/2021 8867-4 [facility] Heart rate Value=70.0 Units=/min 72957-2 [facility] O2 % BldC Oximetry Value=97.0 Units= % 03/12/2021 81578-8 [facility] Weight Rashb=814.0 Units=Lbs 04/2021 2339-0 [facility] Blood Sugar Vvzpu=552.0 Units=mg/dL 02/08/2021 8302-2 [facility] Height Value=65.0 Units=Inches 02/07/2021 98478-3 [facility] Pain Level Value=0.0 02/04/2021
[2025-09-06 19:01] LABS: Alanine Aminotransferase 16 U/L (6-35); Albumin Level 3.6 g/dL (3.5-5.1); Alkaline Phosphatase 86 U/L (38-126); Anion Gap 9 mmol/L (4-12); Aspartate Amino Transferase 28 U/L (14-36); Bilirubin,Total 1.2 mg/dL (0.2-1.3); Blood Urea Nitrogen 17 mg/dL (7-17); Calcium 8.7 mg/dL (8.4-10.2); Carbon Dioxide 21 mmol/L (22-30); Chloride 108 mmol/L (98-107); Estimated CRCL calculation 33 ml/min; Estimated Glomerular Filt Rate 38; Glucose 148 mg/dL (65-110); Potassium 4.5 mmol/L (3.4-5.0); Sodium 138 mmol/L (137-145); Total Protein 6.9 g/dL (6.3-8.2)
[2025-09-06 19:31] VITALS: BP 119/55; PULSE 92; RESP 17; O2SAT 96
[2025-09-06 19:55] LABS: Add Urine Microscopic? YES; Appearance Urine Cloudy (Clear); Glucose Urine UA Negative (Negative); Leukocyte Esterase Ur Trace LEU/UL (Negative); Nitrate Urine Negative (Negative); Non Pathogenic Casts 0-2; Specific Grav Ur 1.014 (1.001-1.035)
[2025-09-06] MEDS: cefTRIAXone 2 GM in SODIUM CHLORIDE 0.9% IV 100 ML 200 ML IVPB (20:30)
[2025-09-06 20:45] VITALS: BP 126/64; PULSE 92; RESP 16; O2SAT 95
== END 2025-09-06 21:40 | disposition home or self-care (01) ==
PROVIDERS: Emergency Provider Student in an Organized Health Care Education/Training Program
DX: K52.9 Noninfective gastroenteritis and colitis, unspecified (principal); N39.0 Urinary tract infection, site not specified; R94.31 Abnormal electrocardiogram [ECG] [EKG]; E78.5 Hyperlipidemia, unspecified; I10 Essential (primary) hypertension; E11.9 Type 2 diabetes mellitus without complications; Z79.84 Long term (current) use of oral hypoglycemic drugs
CPT/HCPCS: 36415; 74176; 80053; 81001; 85025; 87086; 87186; 93005; 96361; 96365; 96375; 99284; J0696; J2270; J2405; J7030